=== PATIENT | male | born 1950 | race Caucasian/White ===

== ENCOUNTER 2017-03-06 08:15 | Day surgery (SDC) | payer BC, MEDICARE ==
[~2017-03-06 08:15] MED LIST: Lactated Ringers 1,000 ML IV SCH; Sodium Chloride 0.9% 10 ML Syringe FLUSH PRN
[2017-03-06] MEDS ORDERED: Sodium Phosphate,Monobasic/Sodium Phosphate,Dibasic Enema 133 ML Bottle RECTAL ONE (09:21)
[2017-03-06] MEDS ORDERED: Midazolam 1 MG/ML 2 ML SDV IV ONE (10:00)
[2017-03-06] MEDS ORDERED: Propofol 200 MG/20 ML SDV IV ONE (10:00)
[2017-03-06] MEDS ORDERED: Lidocaine 2% 100 MG/5 ML Syringe IVPUSH ONE (10:00)
--- NOTE | 2017-03-06 10:51 | PCM.OPNOTE ---
- General Post-Op/Procedure Note Date of Surgery/Procedure: 03/06/17 Operative Procedure(s): egd with bx. c scope Findings: Barrios's esophagus normal c scope Pre Op Diagnosis: need for screenign c scope. Hx of Barrios's Post-Op Diagnosis: Same Anesthesia Technique: MAC Primary Surgeon: Marc Chatterjee Anesthesia Provider: Sabi Gautam Pathology: distal esophagus Complications: None Condition: Good Free Text/Narrative:: see dictation
[2017-03-06 11:34] VITALS: BP 148/91
--- NOTE | 2017-03-07 00:21 | OR ---
DATE OF OPERATION: 03/06/2017 SURGEON: Marc Chatterjee MD PROCEDURE PERFORMED: Esophagogastroduodenoscopy with cold forceps biopsy and colonoscopy. 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 POSTOPERATIVE DIAGNOSIS: Barrios esophagus and normal colon. INDICATIONS FOR PROCEDURE: This is a 66-year-old white male, who presents for screening colonoscopy. In addition, he is due for a followup surveillance endoscopy for his Barrios esophagus. DESCRIPTION OF OPERATION: After an excellent IV sedation was administered, the bite block was inserted. The flexible endoscope was passed without difficulty down the patient's esophagus into the stomach. The stomach was insufflated. Scope was passed through the pylorus to the second portion of the duodenum and slowly withdrawn. The following findings were noted. Duodenum was unremarkable. The stomach was unremarkable except for a small hiatal hernia. Distal esophagus, irregular Z-line consistent with Barrios's and biopsies were taken of all the tongues and submitted in a single container. The remainder of the esophageal exam was unremarkable. The stomach was deflated, scope was removed. Our attention was then turned to the colon. Digital rectal exam was performed. No marked abnormality was noted. Flexible colonoscope was inserted and advanced to the cecum without difficulty. The following findings were noted: Ascending colon, unremarkable. Transverse colon, unremarkable. Descending colon, unremarkable. Sigmoid and rectum unremarkable. Colon was deflated. Endoscope was removed. The patient tolerated the procedure well and was taken to recovery in good condition. /[id number] /MODL
== END 2017-03-06 11:37 | disposition home or self-care (01) ==
LOC: FB.SDS 08:15
PROVIDERS: ATTEND Surgery
DX: Z12.11 Encounter for screening for malignant neoplasm of colon (principal); K44.9 Diaphragmatic hernia without obstruction or gangrene; K21.9 Gastro-esophageal reflux disease without esophagitis; E78.5 Hyperlipidemia, unspecified; I25.10 Atherosclerotic heart disease of native coronary artery without angina pectoris; Z95.1 Presence of aortocoronary bypass graft; I50.9 Heart failure, unspecified; Z87.891 Personal history of nicotine dependence; Z88.8 Allergy status to other drugs, medicaments and biological substances; Z79.82 Long term (current) use of aspirin; Z79.899 Other long term (current) drug therapy
CPT/HCPCS: 00810; 43239; 45378; 88305; 88313; J2250; J2704; J7120

== ENCOUNTER 2018-01-15 03:36 | Emergency (ER) | payer BC, MEDICARE ==
[2018-01-15] MEDS ORDERED: hydrALAZINE 20 MG/ML SDV IVPUSH ONE (03:46)
--- NOTE | 2018-01-15 03:51 | EDM.PDOC ---
ED HPI GENERAL MEDICAL PROBLEM - General Stated Complaint: CONFUSSION Time Seen by Provider: 01/15/18 03:36 Source of Information: Reports: Patient, EMS, Family History Limitations: Reports: No Limitations - History of Present Illness INITIAL COMMENTS - FREE TEXT/NARRATIVE: 67 y.o.w.m came to the ed by EMS after he was confused at home, sweaty and diaphoretic. EMS was called and found the BP to >220/120. The patent and his ate salty asparagus last night. On arrival, the pt PB was 200/120, pulse 78 RR 15 temp 36.8 O2 sat 95% on RA pt was confused at times and c/o occipital headache. No C/P or any other acute medical issues. Onset Date: 01/14/18 Onset Time: 23:00 Duration: Hour(s):, Getting Worse, Intermittent Location: Reports: Head (H/A), Neck Quality: Reports: Dull, Pressure, Throbbing Severity: Moderate Improves with: Reports: Medication Context: Reports: Other (eating salty food last night) Associated Symptoms: Reports: Confusion - Related Data Allergies Allergy/AdvReac Type Severity Reaction Status Date / Time celecoxib [From Celebrex] Allergy Shortness Verified 01/15/18 05:46 of Breath Home Meds: Home Meds Aspirin [Atilio Chewable Aspirin] 81 mg PO DAILY 03/05/17 [History] Carbidopa/Levodopa [Carbidopa-Levodopa 25-100 Tab] 1 tab PO ASDIRECTED 03/05/17 [History] Clopidogrel [Plavix] 75 mg PO DAILY 03/05/17 [History] Esomeprazole [NexIUM] 40 mg PO BID 03/05/17 [History] Losartan [Cozaar] 50 mg PO DAILY 03/05/17 [History] Metoprolol Succinate [Toprol Xl] 100 mg PO DAILY 03/05/17 [History] Nitroglycerin [Nitrostat] 0.4 mg SL ASDIRECTED PRN 03/05/17 [History] atorvaSTATin [Lipitor] 80 mg PO DAILY 03/05/17 [History] metroNIDAZOLE [metroNIDAZOLE 0.75% Gel] 1 applic TOP BID 03/05/17 [History] Azithromycin [Zithromax] 250 mg PO DAILY #6 tab 01/15/18 [Rx] Bicalutamide [Casodex] 50 mg PO DAILY 01/15/18 [History] Past Medical History Cardiovascular History: Reports: CAD, Heart Failure, High Cholesterol Respiratory History: Reports: None Gastrointestinal History: Reports: GERD, Other (See Below) Other Gastrointestinal History: SEGURA'S ESOPHAGUS Musculoskeletal History: Reports: Other (See Below) Other Musculoskeletal History: CLAUDICATION OF BILAT LOWER EXTREMITIES - Past Surgical History Cardiovascular Surgical History: Reports: Coronary Artery Bypass Social & Family History - Family History Family Medical History: Noncontributory - Caffeine Use Caffeine Use: Reports: Coffee ED ROS GENERAL - Review of Systems Review Of Systems: See Below Constitutional: Reports: No Symptoms HEENT: Reports: No Symptoms Respiratory: Reports: No Symptoms Cardiovascular: Reports: No Symptoms Endocrine: Reports: No Symptoms GI/Abdominal: Reports: No Symptoms : Reports: No Symptoms Musculoskeletal: Reports: No Symptoms Skin: Reports: No Symptoms Neurological: Reports: Headache Psychiatric: Reports: No Symptoms Hematologic/Lymphatic: Reports: No Symptoms Immunologic: Reports: No Symptoms ED EXAM, GENERAL - Physical Exam Exam: See Below Exam Limited By: No Limitations General Appearance: Alert, WD/WN, Mild Distress Eye Exam: Bilateral Eye: Normal Inspection Ears: Normal External Exam, Normal Canal Ear Exam: Bilateral Ear: Auricle Normal Nose: Normal Inspection Throat/Mouth: Normal Inspection, Normal Lips, Normal Gums, Normal Voice, No Airway Compromise Head: Atraumatic, Normocephalic Neck: Normal Inspection, Supple, Non-Tender, Full Range of Motion Respiratory/Chest: No Respiratory Distress, Lungs Clear, Normal Breath Sounds, No Accessory Muscle Use, Chest Non-Tender Cardiovascular: Normal Peripheral Pulses, Regular Rate, Rhythm, No Edema, No Gallop, No JVD, No Murmur, No Rub Peripheral Pulses: 1+: Brachial (R) GI/Abdominal: Normal Bowel Sounds, Soft, Non-Tender, No Organomegaly, No Distention, No Abnormal Bruit, No Mass (Male) Exam: Deferred Rectal (Males) Exam: Deferred Back Exam: Normal Inspection Extremities: Normal Inspection, Normal Range of Motion, Non-Tender, No Pedal Edema, Normal Capillary Refill Neurological: Alert, Oriented, CN II-XII Intact, Normal Cognition, Normal Gait, No Motor/Sensory Deficits Psychiatric: Normal Affect, Normal Mood Skin Exam: Warm, Dry, Intact, Normal Color, No Rash Lymphatic: No Adenopathy EKG INTERPRETATION EKG Date: 01/15/18 Time: 03:45 Rhythm: NSR Rate (Beats/Min): 55 [place]: Normal P-Wave: Present QRS: Normal ST-T: Normal QT: Normal Comparison: NA - No Prior EKG Course - Vital Signs Text/Narrative:: 67 y.o.w.m came to the ed by EMS after he was confused at home, sweaty and diaphoretic. EMS was called and found the BP to >220/120. The patent and his ate salty asparagus last night. On arrival, the pt PB was 200/120, pulse 78 RR 15 temp 36.8 O2 sat 95% on RA pt was confused at times and c/o occipital headache. No C/P or any other acute medical issues. PE: 67 y.o.w.m with HTN, confusion and headache Imaging: CT Head:Sinusitis, no acute changes. C Spine CT: NAD as per RAD Labs: CBC, BMP and UA were WNL, Glc was 126, however. Impression: Hypertensive encephalopathy, sinusitis Tx: Hydralazine, Abx as a prescription Reexam: BP 147/78 on D/C. Pt was remembering issues, ambulating fine on D/C was in his usual state of health Plan: D/C with instructions Last Recorded V/S: Last Vital Signs Temp 36.3 C 01/15/18 04:10 Pulse 68 01/15/18 05:45 Resp 16 01/15/18 05:45 BP 147/78 H 01/15/18 05:45 Pulse Ox 97 01/15/18 05:45 - Orders/Labs/Meds Orders: Active Orders 24 hr Category Date Time Status EKG Documentation Completion [RC] ASDIRECTED Care 01/15/18 03:49 Active Cervical Spine wo Cont [CT] Stat Exams 01/15/18 04:50 Taken Head wo Cont [CT] Stat Exams 01/15/18 04:49 Taken UA W/MICROSCOPIC [URIN] Stat Lab 01/15/18 04:55 Ordered EKG 12 Lead [EK] Routine Ther 01/15/18 03:48 Ordered Labs: Laboratory Tests 01/15/18 01/15/18 01/15/18 Range/Units 03:53 03:53 03:53 WBC 7.1 (4.5-12.0) X10-3/uL RBC 5.17 (4.30-5.75) x10(6)uL Hgb 15.7 H (11.5-15.5) g/dL Hct 46.6 (30.0-51.3) % MCV 90.2 (80-96) fL MCH 30.4 (27.7-33.6) pg MCHC 33.6 (32.2-35.4) g/dL RDW 12.5 (11.5-15.5) % Plt Count 261 (125-369) X10(3)uL MPV 8.4 (7.4-10.4) fL Neut % (Auto) 59.7 (46-82) % Lymph % (Auto) 23.8 (13-37) % [place] % (Auto) 8.2 (4-12) % Eos % (Auto) 7 H (1.0-5.0) % Baso % (Auto) 1 (0-2) % Neut # (Auto) 4.2 (1.6-8.3) # Lymph # (Auto) 1.7 (0.6-5.0) # [place] # (Auto) 0.6 (0.0-1.3) # Eos # (Auto) 0.5 (0.0-0.8) # Baso # (Auto) 0.1 (0.0-0.2) # PT 10.3 (8.7-11.1) INR 1.06 (0.89-1.13) Sodium 140 (135-145) mmol/L Potassium 4.0 (3.5-5.3) mmol/L Chloride 104 (100-110) mmol/L Carbon Dioxide 24 (21-32) mmol/L BUN 14 (7-18) mg/dL Creatinine 1.0 (0.70-1.30) mg/dL Est Cr Clr Drug Dosing TNP Estimated GFR (MDRD) > 60 (>60) BUN/Creatinine Ratio 14.0 (9-20) Glucose 125 H (80-116) mg/dL Calcium 8.8 (8.6-10.2) mg/dL Urine Color (YELLOW) Urine Appearance (CLEAR) Urine pH (5.0-6.5) Ur Specific [place] (1.010-1.025) Urine Protein (NEGATIVE) mg/dL Urine Glucose (UA) (NEGATIVE) mg/dL Urine Ketones (NEGATIVE) mg/dL Urine Occult Blood (NEGATIVE) Urine Nitrite (NEGATIVE) Urine Bilirubin (NEGATIVE) Urine Urobilinogen (NEGATIVE) mg/dL Ur Leukocyte Esterase (NEGATIVE) Urine RBC (0) Urine WBC (0) Ur Squamous Epith Cells (NS,R,O) Urine Bacteria (NS) 01/15/18 Range/Units 04:55 WBC (4.5-12.0) X10-3/uL RBC (4.30-5.75) x10(6)uL Hgb (11.5-15.5) g/dL Hct (30.0-51.3) % MCV (80-96) fL MCH (27.7-33.6) pg MCHC (32.2-35.4) g/dL RDW (11.5-15.5) % Plt Count (125-369) X10(3)uL MPV (7.4-10.4) fL Neut % (Auto) (46-82) % Lymph % (Auto) (13-37) % [place] % (Auto) (4-12) % Eos % (Auto) (1.0-5.0) % Baso % (Auto) (0-2) % Neut # (Auto) (1.6-8.3) # Lymph # (Auto) (0.6-5.0) # [place] # (Auto) (0.0-1.3) # Eos # (Auto) (0.0-0.8) # Baso # (Auto) (0.0-0.2) # PT (8.7-11.1) INR (0.89-1.13) Sodium (135-145) mmol/L Potassium (3.5-5.3) mmol/L Chloride (100-110) mmol/L Carbon Dioxide (21-32) mmol/L BUN (7-18) mg/dL Creatinine (0.70-1.30) mg/dL Est Cr Clr Drug Dosing Estimated GFR (MDRD) (>60) BUN/Creatinine Ratio (9-20) Glucose (80-116) mg/dL Calcium (8.6-10.2) mg/dL Urine Color Yellow (YELLOW) Urine Appearance Clear (CLEAR) Urine pH 6.0 (5.0-6.5) Ur Specific [place] 1.015 (1.010-1.025) Urine Protein Negative (NEGATIVE) mg/dL Urine Glucose (UA) Normal (NEGATIVE) mg/dL Urine Ketones Negative (NEGATIVE) mg/dL Urine Occult Blood Negative (NEGATIVE) Urine Nitrite Negative (NEGATIVE) Urine Bilirubin Negative (NEGATIVE) Urine Urobilinogen Normal (NEGATIVE) mg/dL Ur Leukocyte Esterase Negative (NEGATIVE) Urine RBC 0-5 (0) Urine WBC 0-5 (0) Ur Squamous Epith Cells Occasional (NS,R,O) Urine Bacteria Few H (NS) Meds: Medications Discontinued Medications Generic Name Dose Route Start Last Admin Trade Name Freq PRN Reason Stop Dose Admin Hydralazine HCl 10 mg 01/15/18 03:46 01/15/18 03:59 Apresoline IVPUSH 01/15/18 03:47 10 mg ONETIME ONE Administration Sodium Chloride 10 ml 01/15/18 04:10 01/15/18 04:10 Saline Flush FLUSH 10 ml ASDIRECTED PRN Administration Keep Vein Open Departure - Departure Time of Disposition: 05:54 Disposition: Home, Self-Care 01 Condition: Good Clinical Impression: Sinusitis chronic, ethmoidal, Hypertensive encephalopathy Prescriptions: Azithromycin [Zithromax] 250 mg PO DAILY #6 tab Instructions: Sinusitis, Adult, [id number], Hypertension, [id number] Referrals: Juan Luis Chiu MD [Primary Care Provider] - Forms: ED Department Discharge Additional Instructions: Please take the Abx as recommended, please cont your current meds, please get your BP checked again in next 2 days, avoid salty food. Please come to the ED if your symptoms get worse acutely. - My Orders Last 24 Hours: My Active Orders 01/15/18 03:48 EKG 12 Lead [EK] Routine 01/15/18 03:49 EKG Documentation Completion [RC] ASDIRECTED 01/15/18 04:49 Head wo Cont [CT] Stat 01/15/18 04:50 Cervical Spine wo Cont [CT] Stat 01/15/18 04:55 UA W/MICROSCOPIC [URIN] Stat - Assessment/Plan Last 24 Hours: My Active Orders 01/15/18 03:48 EKG 12 Lead [EK] Routine 01/15/18 03:49 EKG Documentation Completion [RC] ASDIRECTED 01/15/18 04:49 Head wo Cont [CT] Stat 01/15/18 04:50 Cervical Spine wo Cont [CT] Stat 01/15/18 04:55 UA W/MICROSCOPIC [URIN] Stat
[2018-01-15] MEDS ORDERED: Sodium Chloride 0.9% 10 ML Syringe FLUSH PRN (04:10)
[2018-01-15 07:26] VITALS: BP 147/78
== END 2018-01-15 06:20 | disposition home or self-care (01) ==
LOC: FB.ED 03:36
DX: J32.2 Chronic ethmoidal sinusitis (principal); I67.4 Hypertensive encephalopathy; I50.9 Heart failure, unspecified; E78.00 Pure hypercholesterolemia, unspecified; K21.9 Gastro-esophageal reflux disease without esophagitis; Z79.82 Long term (current) use of aspirin; Z79.899 Other long term (current) drug therapy; Z88.1 Allergy status to other antibiotic agents
CPT/HCPCS: 36415; 70450; 72125; 80048; 81001; 85025; 85610; 93005; 96374; 99284; J0360; J7050

== ENCOUNTER 2021-07-21 19:12 | Emergency (ER) | payer BC, MEDICARE ==
[2021-07-21 19:43] VITALS: BP 198/91; PULSE 54
[2021-07-21] MEDS ORDERED: hydrALAZINE 20 MG/ML SDV IVPUSH STA (19:59)
[2021-07-21] MEDS ORDERED: Sodium Chloride 0.9% 10 ML Syringe FLUSH PRN (19:59)
--- NOTE | 2021-07-21 20:36 | EDM.PDOC ---
ED HPI GENERAL MEDICAL PROBLEM - General Chief Complaint: Cardiovascular Problem Stated Complaint: HIGH BP Time Seen by Provider: 07/21/21 19:20 Source of Information: Reports: Patient History Limitations: Reports: No Limitations - History of Present Illness INITIAL COMMENTS - FREE TEXT/NARRATIVE: Patient presented to the ED because of an elevated BP. There is no headache, chest pain, dyspnea. He is worried because he had 2 AMI and 3 CVA's. - Related Data Allergies Allergy/AdvReac Type Severity Reaction Status Date / Time celecoxib [From Celebrex] Allergy Shortness Verified 07/21/21 19:36 of Breath Home Meds: Home Meds Aspirin [Atilio Chewable Aspirin] 81 mg PO DAILY 03/05/17 [History] Carbidopa/Levodopa [Carbidopa-Levodopa 25-100 Tab] 1 tab PO TID PRN 03/05/17 [History] Esomeprazole [NexIUM] 40 mg PO DAILY 03/05/17 [History] Losartan [Cozaar] 25 mg PO DAILY 03/05/17 [History] Nitroglycerin [Nitrostat] 0.4 mg SL ASDIRECTED PRN 03/05/17 [History] Oxybutynin [Oxybutynin ER] 5 mg PO DAILY 07/22/21 [History] Rosuvastatin [Crestor] 20 mg PO DAILY 07/22/21 [History] carvediloL [Coreg] 6.25 mg PO BID 07/22/21 [History] Past Medical History HEENT History: Reports: Other (See Below) 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 Hx prostate CA Musculoskeletal History: Reports: Arthritis, Other (See Below) Other Musculoskeletal History: CLAUDICATION OF BILAT LOWER EXTREMITIES Neurological History: Reports: CVA, Other (See Below) Other Neuro History: Experiences Tremors, patients states non-Parkinson's., CVA x 3 Hematologic History: Reports: Anemia, Anticoagulation Therapy Oncologic (Cancer) History: Reports: Lung, Prostate - Infectious Disease History Infectious Disease History: Reports: Chicken Pox, Measles, Mumps - Past Surgical History Cardiovascular Surgical History: Reports: Coronary Artery Bypass, Coronary Artery Stent Other Cardiovascular Surgeries/Procedures: Bypass 17 years ago. Respiratory Surgical History: Reports: Other (See Below) Other Respiratory Surgeries/Procedures: L upper lobe removed for lung CA GI Surgical History: Reports: Colonoscopy, EGD Musculoskeletal Surgical History: Reports: Arthroscopic Knee Other Musculoskeletal Surgeries/Procedures:: bilat knee scope Oncologic Surgical History: Reports: Lobectomy Other Oncologic Surgeries/Procedures: L upper lobe lobectomy, had radiation for prostate CA Social & Family History - Family History Family Medical History: No Pertinent Family History - Tobacco Use Tobacco Use Status *Q: Former Tobacco User Years of Tobacco use: 30 Used Tobacco, but Quit: Yes Month/Year Tobacco Last Used: 1999 - Caffeine Use Caffeine Use: Reports: None - Recreational Drug Use Recreational Drug Use: No ED ROS GENERAL - Review of Systems Review Of Systems: See Below Constitutional: Reports: No Symptoms HEENT: Reports: No Symptoms Respiratory: Reports: No Symptoms Cardiovascular: Reports: No Symptoms Endocrine: Reports: No Symptoms GI/Abdominal: Reports: No Symptoms : Reports: No Symptoms Musculoskeletal: Reports: No Symptoms Skin: Reports: No Symptoms Neurological: Reports: No Symptoms Psychiatric: Reports: No Symptoms ED EXAM, GENERAL - Physical Exam Exam: See Below Exam Limited By: No Limitations General Appearance: Alert, No Apparent Distress Ears: Normal External Exam, Normal Canal, Hearing Grossly Normal, Normal TMs Nose: Normal Inspection, Normal Mucosa, No Blood Throat/Mouth: Normal Inspection, Normal Lips, Normal Teeth, Normal Gums, Normal Oropharynx, Normal Voice Head: Atraumatic, Normocephalic Neck: Normal Inspection, Supple, Non-Tender, Full Range of Motion Respiratory/Chest: No Respiratory Distress, Lungs Clear, Normal Breath Sounds, No Accessory Muscle Use, Chest Non-Tender Cardiovascular: Normal Peripheral Pulses, Regular Rate, Rhythm, No Edema, No Gallop, No JVD, No Murmur, No Rub GI/Abdominal: Normal Bowel Sounds, Soft, Non-Tender, No Distention Back Exam: Normal Inspection, Full Range of Motion Extremities: Normal Inspection, Normal Range of Motion, Non-Tender Neurological: Alert, Oriented, CN II-XII Intact, Normal Cognition, Normal Gait, Normal Reflexes, No Motor/Sensory Deficits Psychiatric: Normal Affect, Normal Mood #1 Interpretation EKG Date: 07/21/21 Time: 19:28 Rhythm: NSR Rate (Beats/Min): 55 [place]: Normal P-Wave: Present QRS: Normal ST-T: Normal QT: Normal Comparison: No Change EKG Interpretation Comments: NSR Borderline T abn inferior leads Course - Vital Signs Text/Narrative:: LAB/EKG result was reviewed and discussed with patient Hydralazine 20 mg IV x1 Last Recorded V/S: Last Vital Signs Temp 36.4 C 07/21/21 19:20 Pulse 54 L 07/21/21 19:20 Resp 20 07/21/21 19:20 BP 198/91 H 07/21/21 19:20 Pulse Ox 97 07/21/21 19:20 - Orders/Labs/Meds Orders: Active Orders 24 hr Category Date Time Status Saline Lock Insert [OM.PC] Routine Oth 07/21/21 19:59 Ordered EKG 12 Lead [EK] Routine Ther 07/21/21 19:59 Ordered Labs: Laboratory Tests 07/21/21 07/21/21 07/21/21 Range/Units 19:40 19:40 19:40 WBC 6.6 (3.2-10.1) x10-3/uL RBC 4.63 (3.90-5.90) x10(6)uL Hgb 13.5 (12.9-17.7) g/dL Hct 41.9 (38.3-50.1) % MCV 90.6 (80.8-98.7) fL MCH 29.3 (27.0-33.3) pg MCHC 32.3 (28.7-35.3) g/dL RDW 13.7 (12.4-15.0) % Plt Count 229 (117-477) x10(3)uL MPV 7.9 (6.7-11.0) fL Neut % (Auto) 61.9 (40.3-71.8) % Lymph % (Auto) 23.3 (15.8-45.3) % [place] % (Auto) 9.4 (5.5-15.2) % Eos % (Auto) 4.6 (0.1-6.8) % Baso % (Auto) 0.8 (0.3-3.8) % Neut # (Auto) 4.1 (1.7-6.9) x10-3/uL Lymph # (Auto) 1.5 (0.5-4.5) x10-3/uL [place] # (Auto) 0.6 (0.0-1.2) x10-3/uL Eos # (Auto) 0.3 (0.0-0.6) x10-3/uL Baso # (Auto) 0.1 (0.0-0.3) x10-3/uL Sodium 139 (135-145) mmol/L Potassium 4.0 (3.5-5.3) mmol/L Chloride 103 (100-110) mmol/L Carbon Dioxide 27 (21-32) mmol/L BUN 13 (7-18) mg/dL Creatinine 1.1 (0.70-1.30) mg/dL Est Cr Clr Drug Dosing 61.59 mL/min Estimated GFR (MDRD) > 60 (>60) BUN/Creatinine Ratio 11.8 (9-20) Glucose 94 (80-116) mg/dL Calcium 8.7 (8.6-10.2) mg/dL Total Bilirubin 0.7 (0.1-1.3) mg/dL AST 22 (5-25) IU/L ALT 28 (12-36) U/L Alkaline Phosphatase 78 (56-112) IU/L Troponin I 11.3 (4.0-60.3) pg/mL Total Protein 6.9 (6.0-8.0) g/dL Albumin 3.6 (3.2-4.6) g/dL Globulin 3.3 g/dL Albumin/Globulin Ratio 1.1 Meds: Medications Discontinued Medications Generic Name Dose Route Start Last Admin Trade Name Freq PRN Reason Stop Dose Admin Clonidine HCl 0.2 mg 07/21/21 20:23 07/22/21 07:28 Clonidine 0.1 Mg Tab PO 07/21/21 20:24 Not Given NOW STA Hydralazine HCl 20 mg 07/21/21 19:59 07/21/21 20:13 Hydralazine 20 Mg/Ml Sdv IVPUSH 07/21/21 20:00 20 mg NOW STA Administration Hydralazine HCl 20 mg 12/03/21 20:23 07/22/21 07:28 Hydralazine 20 Mg/Ml Sdv IVPUSH 07/21/21 20:24 Not Given NOW STA Sodium Chloride 10 ml 07/21/21 19:59 07/21/21 20:10 Sodium Chloride 0.9% 10 Ml Syringe FLUSH 10 ml ASDIRECTED PRN Administration Keep Vein Open Departure - Departure Time of Disposition: 20:45 Disposition: Home, Self-Care 01 Condition: Good Clinical Impression: Hypertensive crisis, Palpitations Instructions: Hypertension, Adult, [id number], Palpitations, [id number] Referrals: Thomas Lawrence MD [Primary Care Provider] - Forms: ED Department Discharge Additional Instructions: Please read discharge instructions on palpitations and hypertensive crisis Low salt, low fat diet and exercise Weight loss If your BP is = or more than 185/115 take an extra 50 mg dose of losartan and recheck your BP in 2 hours Follow this coming week Sepsis Event Note (ED) - Evaluation Sepsis Screening Result: No Definite Risk - My Orders Last 24 Hours: My Active Orders 07/21/21 19:59 Saline Lock Insert [OM.PC] Routine EKG 12 Lead [EK] Routine - Assessment/Plan Last 24 Hours: My Active Orders 07/21/21 19:59 Saline Lock Insert [OM.PC] Routine EKG 12 Lead [EK] Routine
[2021-07-22] MEDS: hydrALAZINE 20 MG/ML SDV IVPUSH STA ×2 (02:08→07:28)
[2021-07-22] MEDS: cloNIDine 0.1 MG Tab PO STA ×2 (02:08→07:28)
== END 2021-07-21 20:55 | disposition home or self-care (01) ==
LOC: FB.ED 19:12
DX: I16.9 Hypertensive crisis, unspecified (principal); R00.2 Palpitations; I25.10 Atherosclerotic heart disease of native coronary artery without angina pectoris; I11.0 Hypertensive heart disease with heart failure; I50.9 Heart failure, unspecified; E78.00 Pure hypercholesterolemia, unspecified; K21.9 Gastro-esophageal reflux disease without esophagitis; Z88.8 Allergy status to other drugs, medicaments and biological substances; Z79.82 Long term (current) use of aspirin; Z79.899 Other long term (current) drug therapy; Z86.73 Personal history of transient ischemic attack (TIA), and cerebral infarction without residual deficits; Z95.1 Presence of aortocoronary bypass graft; Z87.891 Personal history of nicotine dependence
CPT/HCPCS: 36415; 80053; 84484; 85025; 93005; 96374; 99283; J0360

== ENCOUNTER 2021-07-26 23:54 | Emergency (ER) | payer MEDICARE ==
[2021-07-27] MEDS ORDERED: Enalaprilat 1.25 MG/ML SDV IVPUSH ONE (00:17)
[2021-07-27] MEDS ORDERED: Labetalol 20 MG/4 ML Syringe IVPUSH ONE (00:41)
--- NOTE | 2021-07-27 00:49 | EDM.PDOC ---
ED HPI GENERAL MEDICAL PROBLEM - General Stated Complaint: HBP Time Seen by Provider: 07/27/21 00:44 Source of Information: Reports: Patient History Limitations: Reports: No Limitations - History of Present Illness INITIAL COMMENTS - FREE TEXT/NARRATIVE: Kevin is a 70-year-old male who has hypertension. He presents because of elevated blood pressure at home. He is otherwise asymptomatic with exception of mild visual disturbance. He does not endorse any headache, chest pain or shortness of breath. He has a history of hypertension and crisis, was seen on Saturday by Dr. Sauceda, given hydralazine. Also saw cardiology today and was placed on spironolactone. He has a previous history of coronary disease, and stroke - Related Data Allergies Allergy/AdvReac Type Severity Reaction Status Date / Time celecoxib [From Celebrex] Allergy Shortness Verified 07/27/21 18:10 of Breath Home Meds: Home Meds Esomeprazole [NexIUM] 40 mg PO DAILY 03/05/17 [History] Nitroglycerin [Nitrostat] 0.4 mg SL ASDIRECTED PRN 03/05/17 [History] Oxybutynin [Oxybutynin ER] 5 mg PO BEDTIME 07/22/21 [History] Rosuvastatin [Crestor] 20 mg PO BEDTIME 07/22/21 [History] carvediloL [Coreg] 6.25 mg PO BID 07/22/21 [History] Apixaban [Eliquis] 5 mg BID 07/27/21 [History] metroNIDAZOLE [metroNIDAZOLE 0.75% Gel] 1 applic BID PRN 07/27/21 [History] Aspirin [Adult Low Dose Aspirin EC] 81 mg PO DAILY 07/28/21 [History] Benzocaine [Orajel] 0 gm MUCMEM QID PRN tube 07/29/21 [Rx] Carbidopa/Levodopa [Carbidopa-Levodopa 25-100] 1 tab PO DAILY tablet 07/29/21 [Rx] amLODIPine Besylate [Amlodipine Besylate] 10 mg PO DAILY@1200 #30 tablet 07/29/21 [Rx] hydrALAZINE [Apresoline] 20 mg PO Q6H PRN tablet 07/29/21 [Rx] Losartan [Cozaar] 50 mg PO BID #60 tablet 07/30/21 [Rx] hydrOXYzine HCL [Atarax] 25 mg PO Q8H PRN #12 tab 07/30/21 [Rx] Past Medical History HEENT History: Reports: Other (See Below) 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 Respiratory History: Reports: None Gastrointestinal History: Reports: GERD, Other (See Below) Other Gastrointestinal History: SEGURA'S ESOPHAGUS Genitourinary History: Reports: Other (See Below) Other Genitourinary History: Started taking Hormone Pills in preparation for Prostate Surgery planned for March 2018. Musculoskeletal History: Reports: Other (See Below) Other Musculoskeletal History: CLAUDICATION OF BILAT LOWER EXTREMITIES Neurological History: Reports: Other (See Below) Other Neuro History: Experiences Tremors, patients states non-Parkinson's. Hematologic History: Reports: Anemia, Anticoagulation Therapy Oncologic (Cancer) History: Reports: Lung, Prostate - Infectious Disease History Infectious Disease History: Reports: Chicken Pox, Measles, Mumps - Past Surgical History Cardiovascular Surgical History: Reports: Coronary Artery Bypass Social & Family History - Family History Family Medical History: No Pertinent Family History - Caffeine Use Caffeine Use: Reports: Coffee ED ROS GENERAL - Review of Systems Review Of Systems: Comprehensive ROS is negative, except as noted in HPI. ED EXAM, GENERAL - Physical Exam Exam: See Below Exam Limited By: No Limitations General Appearance: Alert, WD/WN, No Apparent Distress Ears: Normal External Exam, Normal Canal, Hearing Grossly Normal, Normal TMs Ear Exam: Bilateral Ear: Auricle Normal, Canal Normal, TM normal Nose: Normal Inspection, Normal Mucosa, No Blood Throat/Mouth: Normal Inspection, Normal Lips, Normal Teeth, Normal Gums, Normal Oropharynx, Normal Voice, No Airway Compromise Head: Atraumatic, Normocephalic Neck: Normal Inspection, Supple, Non-Tender, Full Range of Motion Respiratory/Chest: No Respiratory Distress, Lungs Clear, Normal Breath Sounds, No Accessory Muscle Use, Chest Non-Tender Cardiovascular: Normal Peripheral Pulses, Regular Rate, Rhythm, No Edema, No Gallop, No JVD, No Murmur, No Rub GI/Abdominal: Normal Bowel Sounds, Soft, Non-Tender, No Organomegaly, No Distention, No Abnormal Bruit, No Mass (Male) Exam: Deferred Rectal (Males) Exam: Deferred Back Exam: Normal Inspection, Full Range of Motion, NT Extremities: Normal Inspection, Normal Range of Motion, Non-Tender, Normal Capillary Refill, No Pedal Edema Neurological: Alert, Oriented, CN II-XII Intact, Normal Cognition, Normal Gait, Normal Reflexes, No Motor/Sensory Deficits Psychiatric: Normal Affect, Normal Mood Skin Exam: Warm, Dry, Intact, Normal Color, No Rash Lymphatic: No Adenopathy #1 Interpretation EKG Date: 07/27/21 Time: 00:03 Rhythm: NSR [place]: Normal P-Wave: Present Comparison: No Change #2 Interpretation EKG Date: 07/27/21 Time: 00:31 Rhythm: NSR Rate (Beats/Min): 64 [place]: Normal P-Wave: Present QT: Normal Comparison: Change From Previous EKG Course - Vital Signs Last Recorded V/S: Last Vital Signs Temp 98.2 F 07/27/21 01:21 Pulse 61 07/27/21 01:21 Resp 14 07/27/21 01:21 BP 209/106 H 07/27/21 01:21 Pulse Ox 96 07/27/21 01:21 - Orders/Labs/Meds Labs: Laboratory Tests 07/27/21 07/27/21 07/27/21 Range/Units 00:25 00:25 00:25 WBC 6.8 (3.2-10.1) x10-3/uL RBC 4.62 (3.90-5.90) x10(6)uL Hgb 13.8 (12.9-17.7) g/dL Hct 41.7 (38.3-50.1) % MCV 90.4 (80.8-98.7) fL MCH 29.8 (27.0-33.3) pg MCHC 33.0 (28.7-35.3) g/dL RDW 13.8 (12.4-15.0) % Plt Count 234 (117-477) x10(3)uL MPV 7.8 (6.7-11.0) fL Neut % (Auto) 59.8 (40.3-71.8) % Lymph % (Auto) 24.1 (15.8-45.3) % [place] % (Auto) 9.2 (5.5-15.2) % Eos % (Auto) 6.1 (0.1-6.8) % Baso % (Auto) 0.8 (0.3-3.8) % Neut # (Auto) 4.1 (1.7-6.9) x10-3/uL Lymph # (Auto) 1.6 (0.5-4.5) x10-3/uL [place] # (Auto) 0.6 (0.0-1.2) x10-3/uL Eos # (Auto) 0.4 (0.0-0.6) x10-3/uL Baso # (Auto) 0.1 (0.0-0.3) x10-3/uL Sodium 138 (135-145) mmol/L Potassium 3.7 (3.5-5.3) mmol/L Chloride 103 (100-110) mmol/L Carbon Dioxide 26 (21-32) mmol/L BUN 15 (7-18) mg/dL Creatinine 1.1 (0.70-1.30) mg/dL Est Cr Clr Drug Dosing TNP Estimated GFR (MDRD) > 60 (>60) BUN/Creatinine Ratio 13.6 (9-20) Glucose 109 (80-116) mg/dL Calcium 8.4 L (8.6-10.2) mg/dL Troponin I 10.9 (4.0-60.3) pg/mL Meds: Medications Discontinued Medications Generic Name Dose Route Start Last Admin Trade Name Freq PRN Reason Stop Dose Admin Enalaprilat 1.25 mg 07/27/21 00:17 07/27/21 00:21 Enalaprilat 1.25 Mg/Ml Sdv IVPUSH 07/27/21 00:18 1.25 mg ONETIME ONE Administration Labetalol HCl 20 mg 07/27/21 00:41 07/27/21 00:46 Labetalol 20 Mg/4 Ml Syringe IVPUSH 07/27/21 00:42 20 mg ONETIME ONE Administration Protocol Departure - Departure Time of Disposition: 21:12 Disposition: Home, Self-Care 01 Condition: Good Clinical Impression: Acute coronary syndrome, Hypertensive urgency Instructions: Hypertension, Adult, [id number] Referrals: Thomas Lawrence MD [Primary Care Provider] - Forms: ED Department Discharge Additional Instructions: Read discharge instructions on Hypertension. Continue taking your medications as directed. Follow-up tomorrow. - Problem List & Annotations (1) Hypertensive urgency SNOMED Code(s): 013258516 Code(s): I16.0 - HYPERTENSIVE URGENCY Status: Acute - Problem List Review Problem List Initiated/Reviewed/Updated: Yes - Assessment/Plan Plan: I have him Vasotec 1.25 mg initially. then labetalol 20 mg IV.
[2021-07-27 01:29] VITALS: BP 209/106; PULSE 61
== END 2021-07-27 01:50 | disposition home or self-care (01) ==
LOC: FB.ED 23:54
DX: I16.0 Hypertensive urgency (principal); I11.0 Hypertensive heart disease with heart failure; I50.9 Heart failure, unspecified; I24.9 Acute ischemic heart disease, unspecified; I25.10 Atherosclerotic heart disease of native coronary artery without angina pectoris; E78.00 Pure hypercholesterolemia, unspecified; K21.9 Gastro-esophageal reflux disease without esophagitis; Z88.1 Allergy status to other antibiotic agents; Z79.82 Long term (current) use of aspirin; Z79.01 Long term (current) use of anticoagulants; Z79.899 Other long term (current) drug therapy
CPT/HCPCS: 36415; 80048; 84484; 85025; 93005; 96374; 96375; 99283; J3490

== ENCOUNTER 2021-07-27 17:49 | Observation (INO) | payer MEDICARE ==
[2021-07-27] MEDS ORDERED: Sodium Chloride 0.9% 10 ML Syringe FLUSH PRN (18:07)
[2021-07-27] MEDS ORDERED: hydrALAZINE 20 MG/ML SDV IVPUSH STA (18:09)
[2021-07-27] MEDS ORDERED: Aspirin 81 MG Tab.Chew PO STA ×2 (18:09→18:39)
[2021-07-27] MEDS ORDERED: Carbidopa/Levodopa 25-100 MG Tab *PTOM PO PRN (19:51)
[2021-07-27] MEDS ORDERED: Nitroglycerin 0.4 MG Tab.SL *PTOM SL PRN (19:51)
[2021-07-27] MEDS ORDERED: hydrALAZINE 20 MG/ML SDV IVPUSH PRN (19:55)
[2021-07-27] MEDS: Carvedilol 6.25 MG Tab *PTOM PO SCH (21:20)
[2021-07-27] MEDS: Apixaban 5 MG Tab *PTOM PO SCH (21:20)
[2021-07-27] MEDS: Losartan 50 MG Tab *PTOM PO SCH (21:20)
--- NOTE | 2021-07-28 03:12 | EDM.PDOC ---
ED HPI GENERAL MEDICAL PROBLEM - General Chief Complaint: Chest Pain Stated Complaint: CHEST PAIN Time Seen by Provider: 07/27/21 17:55 Source of Information: Reports: Patient History Limitations: Reports: No Limitations - History of Present Illness INITIAL COMMENTS - FREE TEXT/NARRATIVE: Patient is a 70 YO WM who presented to the ED because of chest tightness at about 1630 today. He went to check on his BP and his systolic BP was more than 200. He also c/o dyspnea,nausea but no vomiting, tightness on his jaw arms. He also noticed his arms and legs getting weak. While in the ED all his symptoms resolved when his BP improved. This is his 3rd ER visit in a week, one at [facility] in [place] and on 07/27/21 he was seen by the General Technician at [facility], Dr. Paredes who added spironolactone to his antihypertensive medications. bilateral arm Pain Score (Numeric/FACES): 3 - Related Data Allergies Allergy/AdvReac Type Severity Reaction Status Date / Time celecoxib [From Celebrex] Allergy Shortness Verified 07/27/21 18:10 of Breath Home Meds: Home Meds Aspirin [Atilio Chewable Aspirin] 81 mg PO DAILY 03/05/17 [History] Carbidopa/Levodopa [Carbidopa-Levodopa 25-100 Tab] 1 tab PO TID PRN 03/05/17 [History] Esomeprazole [NexIUM] 40 mg PO DAILY 03/05/17 [History] Losartan [Cozaar] 50 mg PO BID 03/05/17 [History] Nitroglycerin [Nitrostat] 0.4 mg SL ASDIRECTED PRN 03/05/17 [History] Oxybutynin [Oxybutynin ER] 5 mg PO DAILY 07/22/21 [History] Rosuvastatin [Crestor] 20 mg PO DAILY 07/22/21 [History] carvediloL [Coreg] 6.25 mg PO BID 07/22/21 [History] Apixaban [Eliquis] 5 mg BID 07/27/21 [History] Spironolactone [Aldactone] 25 mg PO DAILY 07/27/21 [History] hydrALAZINE [Apresoline] 20 mg PO Q6HR PRN 07/27/21 [History] metroNIDAZOLE [metroNIDAZOLE 0.75% Gel] 1 applic BID PRN 07/27/21 [History] Past Medical History HEENT History: Reports: Other (See Below) Other HEENT History: 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 Respiratory History: Reports: None Gastrointestinal History: Reports: GERD, Other (See Below) Other Gastrointestinal History: SEGURA'S ESOPHAGUS Genitourinary History: Reports: Prostate Disorder, Other (See Below) Other Genitourinary History: hx prostate CA Musculoskeletal History: Reports: Other (See Below) Other Musculoskeletal History: CLAUDICATION OF BILAT LOWER EXTREMITIES Neurological History: Reports: Other (See Below) Other Neuro History: Experiences Tremors, patients states non-Parkinson's. Psychiatric History: Reports: Anxiety Hematologic History: Reports: Anemia, Anticoagulation Therapy Oncologic (Cancer) History: Reports: Lung, Prostate - Infectious Disease History Infectious Disease History: Reports: Chicken Pox, Measles, Mumps - Past Surgical History Cardiovascular Surgical History: Reports: Coronary Artery Bypass Other Cardiovascular Surgeries/Procedures: Bypass 17 years ago. Has had 10 bypass in 2000 Respiratory Surgical History: Reports: Other (See Below) Other Respiratory Surgeries/Procedures: L upper lobe removed for lung CA GI Surgical History: Reports: Colonoscopy, EGD Male Surgical History: Reports: Prostate Biopsy Musculoskeletal Surgical History: Reports: Arthroscopic Knee Other Musculoskeletal Surgeries/Procedures:: bilat knee scope Oncologic Surgical History: Reports: Lobectomy Other Oncologic Surgeries/Procedures: L upper lobe lobectomy, had radiation for prostate CA Social & Family History - Family History Family Medical History: No Pertinent Family History - Tobacco Use Tobacco Use Status *Q: Light Tobacco User Years of Tobacco use: 15 Packs/Tins Daily: 1 Used Tobacco, but Quit: No Second Hand Smoke Exposure: No - Caffeine Use Caffeine Use: Reports: None - Alcohol Use Days Per Week of Alcohol Use: 3 Number of Drinks Per Day: 2 Total Drinks Per Week: 6 - Recreational Drug Use Recreational Drug Use: No ED ROS GENERAL - Review of Systems Review Of Systems: See Below Constitutional: Reports: Weakness HEENT: Reports: No Symptoms Respiratory: Reports: Shortness of Breath Cardiovascular: Reports: Chest Pain Endocrine: Reports: No Symptoms GI/Abdominal: Reports: Nausea : Reports: No Symptoms Musculoskeletal: Reports: No Symptoms Skin: Reports: No Symptoms Neurological: Reports: No Symptoms Psychiatric: Reports: No Symptoms Hematologic/Lymphatic: Reports: No Symptoms Immunologic: Reports: No Symptoms ED EXAM, GENERAL - Physical Exam Exam: See Below Exam Limited By: No Limitations General Appearance: Alert, No Apparent Distress Eye Exam: Bilateral Eye: PERRL Ears: Normal External Exam, Normal Canal, Hearing Grossly Normal, Normal TMs Nose: Normal Inspection, Normal Mucosa, No Blood Throat/Mouth: Normal Inspection, Normal Lips, Normal Teeth, Normal Gums, Normal Oropharynx Head: Atraumatic, Normocephalic Neck: Normal Inspection, Supple, Non-Tender, Full Range of Motion Respiratory/Chest: No Respiratory Distress, Lungs Clear, Normal Breath Sounds, No Accessory Muscle Use, Chest Non-Tender Cardiovascular: Normal Peripheral Pulses, Regular Rate, Rhythm, No Edema, No Gallop, No JVD, No Murmur, No Rub GI/Abdominal: Normal Bowel Sounds, Soft, Non-Tender, No Organomegaly, No Distention, No Abnormal Bruit Back Exam: Normal Inspection, Full Range of Motion Extremities: Normal Inspection, Normal Range of Motion, Non-Tender, No Pedal Edema, Normal Capillary Refill Neurological: Alert, Oriented, CN II-XII Intact, Normal Cognition, Normal Gait, Normal Reflexes, No Motor/Sensory Deficits Psychiatric: Normal Affect, Normal Mood Skin Exam: Warm #1 Interpretation EKG Date: 07/27/21 Time: 18:35 Rhythm: NSR Rate (Beats/Min): 57 [place]: Normal P-Wave: Present QRS: Normal ST-T: Normal QT: Normal HI/PQ Interval: 218 Comparison: NA - No Prior EKG EKG Interpretation Comments: NSR LVH Course - Vital Signs Text/Narrative:: Lab/EKG/Head CT result was reviewed and discussed with patient and his family ASA 243 PO x1 Hydralazine 20 mg IV x1 Cardiology consult at [facility] was done with Dr. SALAZAR(Brenda) who made the following recommendations: Admit patient to observation with tele and serial cardiac enzymes. If the cardiac enzymes are negative and prior to discharge, [employer] dean Dr Lucas/Reggie/MARIE need to be informed and ask if they can do the stress test earlier than 08/04/21. He is scheduled to have the stress test on this day. Last Recorded V/S: Last Vital Signs Temp 36.4 C 07/28/21 00:00 Pulse 78 07/28/21 00:00 Resp 16 07/28/21 00:00 BP 133/82 07/28/21 00:00 Pulse Ox 96 07/28/21 00:00 - Orders/Labs/Meds Orders: Active Orders 24 hr Category Date Time Status Chest 1V Frontal [CR] Stat Exams 07/27/21 18:07 Ordered Head wo Cont [CT] Stat Exams 07/27/21 18:37 Taken Sodium Chloride 0.9% [Saline Flush] Med 07/27/21 18:07 Active 10 ml FLUSH ASDIRECTED PRN Saline Lock Insert [OM.PC] Routine Oth 07/27/21 18:07 Ordered EKG 12 Lead [EK] Routine Ther 07/27/21 18:07 Ordered Medication Orders Apixaban (Apixaban 5 Mg Tab) 5 mg PO BID [facility] Last Admin: 07/27/21 21:20 Dose: Not Given Documented by: MAGGIE Aspirin (Aspirin 81 Mg Tab.Chew) 81 mg PO DAILY [facility] Carbidopa/Levodopa (Carbidopa/Levodopa 25-100 Mg Tab) 1 tab PO TID PRN PRN Reason: other Carvedilol (Carvedilol 6.25 Mg Tab) 6.25 mg PO BID [facility] Last Admin: 07/27/21 21:20 Dose: Not Given Documented by: MAGGIE Hydralazine HCl (Hydralazine 10 Mg Tab) 20 mg PO Q6H PRN PRN Reason: Hypertension Hydralazine HCl (Hydralazine 20 Mg/Ml Sdv) 20 mg IVPUSH Q6H PRN PRN Reason: z Losartan Potassium (Losartan 50 Mg Tab) 50 mg PO BID [facility] Last Admin: 07/27/21 21:20 Dose: Not Given Documented by: MAGGIE Metronidazole (Metronidazole 45 Gm Tube) 0 gm TOP BID PRN PRN Reason: rash Nitroglycerin (Nitroglycerin 0.4 Mg Tab.Sl) 0.4 mg SL ASDIRECTED PRN PRN Reason: Chest Pain Oxybutynin Chloride (Oxybutynin 5 Mg Tab.Er) 5 mg PO DAILY [facility] Pantoprazole Sodium (Pantoprazole 40 Mg Tab.Cr) 40 mg PO ACBREAKFAST [facility] Rosuvastatin Calcium (Rosuvastatin 20 Mg Tab) 20 mg PO DAILY [facility] Sodium Chloride (Sodium Chloride 0.9% 10 Ml Syringe) 10 ml FLUSH ASDIRECTED PRN PRN Reason: Keep Vein Open Spironolactone (Spironolactone 25 Mg Tab) 25 mg PO DAILY AMRIZOL Labs: Laboratory Tests 07/27/21 07/27/21 07/27/21 Range/Units 17:00 18:00 18:00 WBC 7.2 (3.2-10.1) x10-3/uL RBC 4.69 (3.90-5.90) x10(6)uL Hgb 13.9 (12.9-17.7) g/dL Hct 42.7 (38.3-50.1) % MCV 91.2 (80.8-98.7) fL MCH 29.6 (27.0-33.3) pg MCHC 32.5 (28.7-35.3) g/dL RDW 14.1 (12.4-15.0) % Plt Count 234 (117-477) x10(3)uL MPV 7.9 (6.7-11.0) fL Neut % (Auto) 63.8 (40.3-71.8) % Lymph % (Auto) 22.6 (15.8-45.3) % [place] % (Auto) 8.2 (5.5-15.2) % Eos % (Auto) 4.6 (0.1-6.8) % Baso % (Auto) 0.8 (0.3-3.8) % Neut # (Auto) 4.6 (1.7-6.9) x10-3/uL Lymph # (Auto) 1.6 (0.5-4.5) x10-3/uL [place] # (Auto) 0.6 (0.0-1.2) x10-3/uL Eos # (Auto) 0.3 (0.0-0.6) x10-3/uL Baso # (Auto) 0.1 (0.0-0.3) x10-3/uL PT 11.0 (9.0-11.1) sec INR 1.02 (1.00-1.24) APTT 26.0 (24.4-33.2) SECONDS D-Dimer, Quantitative 1.04 H (0.0-0.59) mg/LFEU Sodium 137 (135-145) mmol/L Potassium 3.6 (3.5-5.3) mmol/L Chloride 102 (100-110) mmol/L Carbon Dioxide 24 (21-32) mmol/L BUN 14 (7-18) mg/dL Creatinine 1.1 (0.70-1.30) mg/dL Est Cr Clr Drug Dosing 61.59 mL/min Estimated GFR (MDRD) > 60 (>60) BUN/Creatinine Ratio 12.7 (9-20) Glucose 135 H (80-116) mg/dL Calcium 8.4 L (8.6-10.2) mg/dL Total Bilirubin 0.4 (0.1-1.3) mg/dL AST 13 D (5-25) IU/L ALT 21 D (12-36) U/L Alkaline Phosphatase 74 (56-112) IU/L Troponin I (4.0-60.3) pg/mL NT-Pro-B Natriuret Pep (<=125) pg/mL Total Protein 6.9 (6.0-8.0) g/dL Albumin 3.6 (3.2-4.6) g/dL Globulin 3.3 g/dL Albumin/Globulin Ratio 1.1 SARS-CoV-2 RNA (SERGIO) (NEGATIVE) 07/27/21 07/27/21 Range/Units 18:00 19:39 WBC (3.2-10.1) x10-3/uL RBC (3.90-5.90) x10(6)uL Hgb (12.9-17.7) g/dL Hct (38.3-50.1) % MCV (80.8-98.7) fL MCH (27.0-33.3) pg MCHC (28.7-35.3) g/dL RDW (12.4-15.0) % Plt Count (117-477) x10(3)uL MPV (6.7-11.0) fL Neut % (Auto) (40.3-71.8) % Lymph % (Auto) (15.8-45.3) % [place] % (Auto) (5.5-15.2) % Eos % (Auto) (0.1-6.8) % Baso % (Auto) (0.3-3.8) % Neut # (Auto) (1.7-6.9) x10-3/uL Lymph # (Auto) (0.5-4.5) x10-3/uL [place] # (Auto) (0.0-1.2) x10-3/uL Eos # (Auto) (0.0-0.6) x10-3/uL Baso # (Auto) (0.0-0.3) x10-3/uL PT (9.0-11.1) sec INR (1.00-1.24) APTT (24.4-33.2) SECONDS D-Dimer, Quantitative (0.0-0.59) mg/LFEU Sodium (135-145) mmol/L Potassium (3.5-5.3) mmol/L Chloride (100-110) mmol/L Carbon Dioxide (21-32) mmol/L BUN (7-18) mg/dL Creatinine (0.70-1.30) mg/dL Est Cr Clr Drug Dosing mL/min Estimated GFR (MDRD) (>60) BUN/Creatinine Ratio (9-20) Glucose (80-116) mg/dL Calcium (8.6-10.2) mg/dL Total Bilirubin (0.1-1.3) mg/dL AST (5-25) IU/L ALT (12-36) U/L Alkaline Phosphatase (56-112) IU/L Troponin I 9.1 (4.0-60.3) pg/mL NT-Pro-B Natriuret Pep 776 H (<=125) pg/mL Total Protein (6.0-8.0) g/dL Albumin (3.2-4.6) g/dL Globulin g/dL Albumin/Globulin Ratio SARS-CoV-2 RNA (SERGIO) Negative (NEGATIVE) Meds: Medications Generic Name Dose Route Start Last Admin Trade Name Freq PRN Reason Stop Dose Admin Apixaban 5 mg 07/27/21 21:00 07/27/21 21:20 Apixaban 5 Mg Tab PO Not Given BID MARIZOL Aspirin 81 mg 07/28/21 09:00 Aspirin 81 Mg Tab.Chew PO DAILY MARIZOL Carbidopa/Levodopa 1 tab 07/27/21 19:51 Carbidopa/Levodopa 25-100 Mg Tab PO TID PRN other Carvedilol 6.25 mg 07/27/21 21:00 07/27/21 21:20 Carvedilol 6.25 Mg Tab PO Not Given BID MARIZOL Hydralazine HCl 20 mg 07/27/21 19:51 Hydralazine 10 Mg Tab PO Q6H PRN Hypertension Hydralazine HCl 20 mg 07/27/21 19:55 Hydralazine 20 Mg/Ml Sdv IVPUSH Q6H PRN z Losartan Potassium 50 mg 07/27/21 21:00 07/27/21 21:20 Losartan 50 Mg Tab PO Not Given BID MARIZOL Metronidazole 0 gm 07/27/21 19:51 Metronidazole 45 Gm Tube TOP BID PRN rash Nitroglycerin 0.4 mg 07/27/21 19:51 Nitroglycerin 0.4 Mg Tab.Sl SL ASDIRECTED PRN Chest Pain Oxybutynin Chloride 5 mg 07/28/21 09:00 Oxybutynin 5 Mg Tab.Er PO DAILY MARIZOL Pantoprazole Sodium 40 mg 07/28/21 07:30 Pantoprazole 40 Mg Tab.Cr PO ACBREAKFAST [facility] Rosuvastatin Calcium 20 mg 07/28/21 09:00 Rosuvastatin 20 Mg Tab PO DAILY [facility] Sodium Chloride 10 ml 07/27/21 18:07 Sodium Chloride 0.9% 10 Ml Syringe FLUSH ASDIRECTED PRN Keep Vein Open Spironolactone 25 mg 07/28/21 09:00 Spironolactone 25 Mg Tab PO DAILY MARIZOL Discontinued Medications Generic Name Dose Route Start Last Admin Trade Name Freq PRN Reason Stop Dose Admin Aspirin 324 mg 07/27/21 18:09 07/27/21 18:44 Aspirin 81 Mg Tab.Chew PO 07/27/21 18:10 Not Given NOW STA Aspirin 243 mg 07/27/21 18:39 07/27/21 18:44 Aspirin 81 Mg Tab.Chew PO 07/27/21 18:40 243 mg NOW STA Administration Hydralazine HCl 20 mg 07/27/21 18:09 07/27/21 18:42 Hydralazine 20 Mg/Ml Sdv IVPUSH 07/27/21 18:10 20 mg NOW STA Administration Departure - Departure Time of Disposition: 20:00 Disposition: Refer to Observation Condition: Good Clinical Impression: Hypertensive crisis, Chest pain, Hypertension, Dyslipidemia, GERD (gastroesophageal reflux disease) Sepsis Event Note (ED) - Evaluation Sepsis Screening Result: No Definite Risk - Focused Exam Vital Signs: Vital Signs Temp Pulse Resp BP Pulse Ox 07/27/21 19:00 59 L 18 157/75 H 98 07/27/21 17:49 36.4 C 54 L 18 207/92 H 98 - My Orders Last 24 Hours: My Active Orders 07/27/21 18:07 Chest 1V Frontal [CR] Stat Sodium Chloride 0.9% [Saline Flush] 10 ml FLUSH ASDIRECTED PRN Saline Lock Insert [OM.PC] Routine EKG 12 Lead [EK] Routine 07/27/21 18:37 Head wo Cont [CT] Stat - Assessment/Plan Last 24 Hours: My Active Orders 07/27/21 18:07 Chest 1V Frontal [CR] Stat Sodium Chloride 0.9% [Saline Flush] 10 ml FLUSH ASDIRECTED PRN Saline Lock Insert [OM.PC] Routine EKG 12 Lead [EK] Routine 07/27/21 18:37 Head wo Cont [CT] Stat
[2021-07-28] MEDS ORDERED: Pantoprazole 40 MG Tab.CR PO SCH (07:30)
[2021-07-28] MEDS ORDERED: Rosuvastatin 20 MG Tab PO SCH (09:00)
[2021-07-28] MEDS ORDERED: Oxybutynin 5 MG Tab.ER PO SCH (09:00)
[2021-07-28] MEDS ORDERED: Spironolactone 25 MG Tab *PTOM PO SCH ×2 (09:00→12:00)
[2021-07-28] MEDS ORDERED: Aspirin 81 MG Tab.Chew PO SCH (09:00)
[2021-07-28] MEDS: HYDRALAZINE 10 MG PO PRN ×2 (09:11→22:04)
[2021-07-28] MEDS: Carvedilol 6.25 MG Tab *PTOM PO SCH ×2 (10:22→20:37)
[2021-07-28] MEDS: Aspirin 81 MG Tab.EC *PTOM PO SCH (10:23)
[2021-07-28] MEDS: Carbidopa/Levodopa 25-100 MG Tab *PTOM PO SCH (10:23)
[2021-07-28] MEDS: ESOMEPRAZOLE 40 MG PO SCH (10:23)
[2021-07-28] MEDS: Losartan 50 MG Tab *PTOM PO SCH ×2 (10:24→20:38)
[2021-07-28] MEDS: Apixaban 5 MG Tab *PTOM PO SCH ×2 (10:24→20:40)
--- NOTE | 2021-07-28 11:06 | PCM.HP.2 ---
H&P History of Present Illness - General Date of Service: 07/28/21 Admit Problem/Dx: Admission Diagnosis/Problem Admission Diagnosis/Problem Chest pain Source of Information: Patient, Family, Provider History Limitations: Reports: No Limitations - History of Present Illness Initial Comments - Free Text/Narative: Randy presented to ER yesterday afternoon, started having chest tightness, heavy arms, facial pressure about 1630 checked his SBP was 180, he took Hydralazine 10 mg x 1 then repeated in 30 min, it had gone up, so took another 10 mg Hydralazine as prescribed and it went up further so he took all his evening meds and came to ER. He has been seen in ER on 07/21 for hypertensive crisis, he was seen on 07/26 by Cardiology, Dr Glass who started him on Spironolactone 25 mg daily as he was on maximum dose of Coreg(HR 60s) & Losartan. He was also seen in ER again evening of 07/26 into 07/27 and followed up in [facility] on later that day of 07/27. He had hydralazine 10 mg 1-2 tabs q6h as needed for SBP > 150. He states his morning medications have been bringing his pressures down to 130s but then it goes up in the afternoons. He has taken 2 dose of Spironolactone so far, evening of 07/26 and afternoon of 07/27. He was scheduled for stress test on 08/04 but cardiology recommended to Dr Sauceda last evening to notify them if his troponin were negative x 3 and when he would be discharged so they can move up his stress test to earlier next week. States he had some blurred vision last night and again this morning. No slurred speech or limb weakness but was unst shai on his feet per his when she brought him in yesterday. History of CABG x 10 in 2000, stent placed in 2014. 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 History of AAA, last measured 4 cm 2019, has not had this years follow up yet. Denies any fevers, chills, cough, nausea, vomiting, diarrhea. Urinating normally. No diaphoresis. In ER: troponin was 9.1, 11.2, WBC and Chemistry WNL. Covid negative. Received dose of Hydralazine 20 mg IV which brought his pressure down to 139/78. Aspirin 243 mg x [address] head was negative for acute changes. Dr Sauceda spoke with Dr Garcia(see his note), [facility] who recommended admission for serial cardiac enzymes and monitoring and to notify Cardiology clinic to get his stress test moved up if his troponin remained negative. bilateral arm Pain Score (Numeric/FACES): 3 - Related Data Allergies/Adverse Reactions: Allergies Allergy/AdvReac Type Severity Reaction Status Date / Time celecoxib [From Celebrex] Allergy Shortness Verified 07/27/21 18:10 of Breath Home Medications: Home Meds Carbidopa/Levodopa [Carbidopa-Levodopa 25-100 Tab] 1 tab PO TID PRN 03/05/17 [History] Esomeprazole [NexIUM] 40 mg PO DAILY 03/05/17 [History] Losartan [Cozaar] 50 mg PO BID 03/05/17 [History] Nitroglycerin [Nitrostat] 0.4 mg SL ASDIRECTED PRN 03/05/17 [History] Oxybutynin [Oxybutynin ER] 5 mg PO BEDTIME 07/22/21 [History] Rosuvastatin [Crestor] 20 mg PO BEDTIME 07/22/21 [History] carvediloL [Coreg] 6.25 mg PO BID 07/22/21 [History] Apixaban [Eliquis] 5 mg BID 07/27/21 [History] Spironolactone [Aldactone] 25 mg PO DAILY 07/27/21 [History] hydrALAZINE [Apresoline] 10 - 20 mg PO Q6HR PRN 07/27/21 [History] metroNIDAZOLE [metroNIDAZOLE 0.75% Gel] 1 applic BID PRN 07/27/21 [History] Aspirin [Adult Low Dose Aspirin EC] 81 mg PO DAILY 07/28/21 [History] Past Medical History HEENT History: Reports: Other (See Below) Other HEENT History: 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 Respiratory History: Reports: None Gastrointestinal History: Reports: GERD, Other (See Below) Other Gastrointestinal History: SEGURA'S ESOPHAGUS Genitourinary History: Reports: Prostate Disorder, Other (See Below) Other Genitourinary History: hx prostate CA Musculoskeletal History: Reports: Other (See Below) Other Musculoskeletal History: CLAUDICATION OF BILAT LOWER EXTREMITIES Neurological History: Reports: Other (See Below) Other Neuro History: Experiences Tremors, patients states non-Parkinson's. Psychiatric History: Reports: Anxiety Hematologic History: Reports: Anemia, Anticoagulation Therapy Oncologic (Cancer) History: Reports: Lung, Prostate - Infectious Disease History Infectious Disease History: Reports: Chicken Pox, Measles, Mumps - Past Surgical History Cardiovascular Surgical History: Reports: Coronary Artery Bypass Other Cardiovascular Surgeries/Procedures: Bypass 17 years ago. Has had 10 bypass in 2000 Respiratory Surgical History: Reports: Other (See Below) Other Respiratory Surgeries/Procedures: L upper lobe removed for lung CA GI Surgical History: Reports: Colonoscopy, EGD Male Surgical History: Reports: Prostate Biopsy Musculoskeletal Surgical History: Reports: Arthroscopic Knee Other Musculoskeletal Surgeries/Procedures:: bilat knee scope Oncologic Surgical History: Reports: Lobectomy Other Oncologic Surgeries/Procedures: L upper lobe lobectomy, had radiation for prostate CA Social & Family History - Family History Family Medical History: No Pertinent Family History - Tobacco Use Tobacco Use Status *Q: Light Tobacco User Years of Tobacco use: 15 Packs/Tins Daily: 1 Used Tobacco, but Quit: No Second Hand Smoke Exposure: No - Caffeine Use Caffeine Use: Reports: None - Alcohol Use Days Per Week of Alcohol Use: 3 Number of Drinks Per Day: 2 Total Drinks Per Week: 6 - Recreational Drug Use Recreational Drug Use: No H&P Review of Systems - Review of Systems: Review Of Systems: Comprehensive ROS is negative, except as noted in HPI. Exam - Exam Exam: See Below - Vital Signs Vital Signs: Last Vital Signs Temp 97.8 F 07/28/21 03:56 Pulse 55 L 07/28/21 10:22 Resp 18 07/28/21 08:55 BP 163/78 H 07/28/21 10:24 Pulse Ox 95 07/28/21 08:55 Weight: 186 lb 14.4 oz - Exam General: Alert, Oriented, Cooperative, Mild Distress HEENT: PERRLA, Conjunctiva Clear, EOMI, Hearing Intact, Mucosa Moist & [place] Neck: Trachea Midline Lungs: Clear to Auscultation, Normal Respiratory Effort, Decreased Breath Sounds (bibasilar) Cardiovascular: Regular Rate, Regular Rhythm GI/Abdominal Exam: Normal Bowel Sounds, Soft, Non-Tender, No Distention (Male) Exam: Deferred Rectal (Males) Exam: Deferred Extremities: No Pedal Edema, Normal Capillary Refill Peripheral Pulses: 1+: Posterior Tibial (L), Posterior Tibial (R), Dorsalis Pedis (L), Dorsalis Pedis (R), 2+: Radial (L), Radial (R) Skin: Warm, Dry, Intact Neurological: Strength Equal Bilateral, Normal Speech, Normal Tone Neuro Extensive - Mental Status: Normal Cognition Neuro Extensive - Motor, Sensory, Reflexes: Motor/Sensory Deficits (no new focal deficits, loss of right visual field chronic). No: Dysarthria, Receptive Aphasia, Expressive Aphasia, Facial Palsy (R), Facial palsy (L), Hemeplagia (R), Hemeplagia (L) Psychiatric: Anxious - Patient Data Lab Results Last 24 hrs: Laboratory Results - last 24 hr 07/27/21 07/27/21 07/27/21 Range/Units 17:00 18:00 18:00 WBC 7.2 (3.2-10.1) x10-3/uL RBC 4.69 (3.90-5.90) x10(6)uL Hgb 13.9 (12.9-17.7) g/dL Hct 42.7 (38.3-50.1) % MCV 91.2 (80.8-98.7) fL MCH 29.6 (27.0-33.3) pg MCHC 32.5 (28.7-35.3) g/dL RDW 14.1 (12.4-15.0) % Plt Count 234 (117-477) x10(3)uL MPV 7.9 (6.7-11.0) fL Neut % (Auto) 63.8 (40.3-71.8) % Lymph % (Auto) 22.6 (15.8-45.3) % [place] % (Auto) 8.2 (5.5-15.2) % Eos % (Auto) 4.6 (0.1-6.8) % Baso % (Auto) 0.8 (0.3-3.8) % Neut # (Auto) 4.6 (1.7-6.9) x10-3/uL Lymph # (Auto) 1.6 (0.5-4.5) x10-3/uL [place] # (Auto) 0.6 (0.0-1.2) x10-3/uL Eos # (Auto) 0.3 (0.0-0.6) x10-3/uL Baso # (Auto) 0.1 (0.0-0.3) x10-3/uL PT 11.0 (9.0-11.1) sec INR 1.02 (1.00-1.24) APTT 26.0 (24.4-33.2) SECONDS D-Dimer, Quantitative 1.04 H (0.0-0.59) mg/LFEU Sodium 137 (135-145) mmol/L Potassium 3.6 (3.5-5.3) mmol/L Chloride 102 (100-110) mmol/L Carbon Dioxide 24 (21-32) mmol/L BUN 14 (7-18) mg/dL Creatinine 1.1 (0.70-1.30) mg/dL Est Cr Clr Drug Dosing 61.59 mL/min Estimated GFR (MDRD) > 60 (>60) BUN/Creatinine Ratio 12.7 (9-20) Glucose 135 H (80-116) mg/dL Calcium 8.4 L (8.6-10.2) mg/dL Total Bilirubin 0.4 (0.1-1.3) mg/dL AST 13 D (5-25) IU/L ALT 21 D (12-36) U/L Alkaline Phosphatase 74 (56-112) IU/L Troponin I (4.0-60.3) pg/mL NT-Pro-B Natriuret Pep (<=125) pg/mL Total Protein 6.9 (6.0-8.0) g/dL Albumin 3.6 (3.2-4.6) g/dL Globulin 3.3 g/dL Albumin/Globulin Ratio 1.1 SARS-CoV-2 RNA (SERGIO) (NEGATIVE) 07/27/21 07/27/21 07/28/21 Range/Units 18:00 19:39 00:07 WBC (3.2-10.1) x10-3/uL RBC (3.90-5.90) x10(6)uL Hgb (12.9-17.7) g/dL Hct (38.3-50.1) % MCV (80.8-98.7) fL MCH (27.0-33.3) pg MCHC (28.7-35.3) g/dL RDW (12.4-15.0) % Plt Count (117-477) x10(3)uL MPV (6.7-11.0) fL Neut % (Auto) (40.3-71.8) % Lymph % (Auto) (15.8-45.3) % [place] % (Auto) (5.5-15.2) % Eos % (Auto) (0.1-6.8) % Baso % (Auto) (0.3-3.8) % Neut # (Auto) (1.7-6.9) x10-3/uL Lymph # (Auto) (0.5-4.5) x10-3/uL [place] # (Auto) (0.0-1.2) x10-3/uL Eos # (Auto) (0.0-0.6) x10-3/uL Baso # (Auto) (0.0-0.3) x10-3/uL PT (9.0-11.1) sec INR (1.00-1.24) APTT (24.4-33.2) SECONDS D-Dimer, Quantitative (0.0-0.59) mg/LFEU Sodium (135-145) mmol/L Potassium (3.5-5.3) mmol/L Chloride (100-110) mmol/L Carbon Dioxide (21-32) mmol/L BUN (7-18) mg/dL Creatinine (0.70-1.30) mg/dL Est Cr Clr Drug Dosing mL/min Estimated GFR (MDRD) (>60) BUN/Creatinine Ratio (9-20) Glucose (80-116) mg/dL Calcium (8.6-10.2) mg/dL Total Bilirubin (0.1-1.3) mg/dL AST (5-25) IU/L ALT (12-36) U/L Alkaline Phosphatase (56-112) IU/L Troponin I 9.1 11.2 (4.0-60.3) pg/mL NT-Pro-B Natriuret Pep 776 H (<=125) pg/mL Total Protein (6.0-8.0) g/dL Albumin (3.2-4.6) g/dL Globulin g/dL Albumin/Globulin Ratio SARS-CoV-2 RNA (SERGIO) Negative (NEGATIVE) 07/28/21 07/28/21 07/28/21 Range/Units 06:10 06:10 06:10 WBC 6.5 (3.2-10.1) x10-3/uL RBC 4.68 (3.90-5.90) x10(6)uL Hgb 13.9 (12.9-17.7) g/dL Hct 42.3 (38.3-50.1) % MCV 90.5 (80.8-98.7) fL MCH 29.7 (27.0-33.3) pg MCHC 32.8 (28.7-35.3) g/dL RDW 14.0 (12.4-15.0) % Plt Count 221 (117-477) x10(3)uL MPV 8.1 (6.7-11.0) fL Neut % (Auto) 62.7 (40.3-71.8) % Lymph % (Auto) 21.8 (15.8-45.3) % [place] % (Auto) 10.4 (5.5-15.2) % Eos % (Auto) 4.3 (0.1-6.8) % Baso % (Auto) 0.8 (0.3-3.8) % Neut # (Auto) 4.1 (1.7-6.9) x10-3/uL Lymph # (Auto) 1.4 (0.5-4.5) x10-3/uL [place] # (Auto) 0.7 (0.0-1.2) x10-3/uL Eos # (Auto) 0.3 (0.0-0.6) x10-3/uL Baso # (Auto) 0.1 (0.0-0.3) x10-3/uL PT (9.0-11.1) sec INR (1.00-1.24) APTT (24.4-33.2) SECONDS D-Dimer, Quantitative (0.0-0.59) mg/LFEU Sodium 139 (135-145) mmol/L Potassium 4.3 (3.5-5.3) mmol/L Chloride 105 (100-110) mmol/L Carbon Dioxide 28 (21-32) mmol/L BUN 13 (7-18) mg/dL Creatinine 1.1 (0.70-1.30) mg/dL Est Cr Clr Drug Dosing 62.60 mL/min Estimated GFR (MDRD) > 60 (>60) BUN/Creatinine Ratio 11.8 (9-20) Glucose 93 (80-116) mg/dL Calcium 8.7 (8.6-10.2) mg/dL Total Bilirubin 0.6 (0.1-1.3) mg/dL AST 14 (5-25) IU/L ALT 24 D (12-36) U/L Alkaline Phosphatase 71 (56-112) IU/L Troponin I 9.7 (4.0-60.3) pg/mL NT-Pro-B Natriuret Pep (<=125) pg/mL Total Protein 6.6 (6.0-8.0) g/dL Albumin 3.5 (3.2-4.6) g/dL Globulin 3.1 g/dL Albumin/Globulin Ratio 1.1 SARS-CoV-2 RNA (SERGIO) (NEGATIVE) Result Diagrams: 07/28/21 06:10 07/28/21 06:10 Sepsis Event Note - Evaluation Sepsis Screening Result: No Definite Risk - Focused Exam Vital Signs: Vital Signs Temp Pulse Pulse Pulse Resp BP BP 07/28/21 10:24 163/78 H 07/28/21 10:22 55 L 163/78 H 07/28/21 09:11 171/83 H 07/28/21 08:55 66 18 171/83 H 07/28/21 04:00 07/28/21 03:56 97.8 F 56 L 16 139/78 07/28/21 00:00 97.5 F 78 16 133/82 Pulse Ox 07/28/21 10:24 07/28/21 10:22 07/28/21 09:11 07/28/21 08:55 95 07/28/21 04:00 97 07/28/21 03:56 97 07/28/21 00:00 96 *Q Meaningful Use (ADM) - VTE Risk Assess *Q Each Risk Factor Represents 1 Point: None Total Score 1 Point Risk Factors: 0 Each Risk Factor Represents 2 Points: Age 60 - 74 Years Total Score 2 Point Risk Factors: 2 Each Risk Factor Represents 3 Points: None Total Score 3 Point Risk Factors: 0 Each Risk Factor Represents 5 Points: None Total Score 5 Point Risk Factors: 0 Venous Thromboembolism Risk Factor Score *Q: 2 - Problem List (1) Hypertensive crisis SNOMED Code(s): 971526939 ICD Code: I16.9 - HYPERTENSIVE CRISIS, UNSPECIFIED Status: Acute Current Visit: Yes (2) Chest pain SNOMED Code(s): 18393211 ICD Code: R07.9 - CHEST PAIN, UNSPECIFIED Status: Acute Current Visit: Yes (3) History of CVA (cerebrovascular accident) SNOMED Code(s): 110727968 ICD Code: Z86.73 - PRSNL HX OF TIA (TIA), AND CEREB INFRC W/O RESID DEFICITS Status: Acute Current Visit: Yes (4) Hypertension SNOMED Code(s): 54575579 ICD Code: I10 - ESSENTIAL (PRIMARY) HYPERTENSION Status: Chronic Current Visit: Yes (5) Dyslipidemia SNOMED Code(s): 874338897 ICD Code: E78.5 - HYPERLIPIDEMIA, UNSPECIFIED Status: Chronic Current Visit: Yes (6) GERD (gastroesophageal reflux disease) SNOMED Code(s): 570037410 ICD Code: K21.9 - GASTRO-ESOPHAGEAL REFLUX DISEASE WITHOUT ESOPHAGITIS Sta tus: Chronic Current Visit: Yes (7) AAA (abdominal aortic aneurysm) without rupture SNOMED Code(s): 21603444 ICD Code: I71.4 - ABDOMINAL AORTIC ANEURYSM, WITHOUT RUPTURE Status: Chronic Current Visit: Yes Onset Date: ~2019 (8) Hx of coronary artery bypass graft SNOMED Code(s): 394570813, 176475989 ICD Code: Z95.1 - PRESENCE OF AORTOCORONARY BYPASS GRAFT Status: Chronic Current Visit: Yes Onset Date: ~2000 Problem List Initiated/Reviewed/Updated: Yes Orders Last 24hrs: Active Orders 24 hr Category Date Time Status Patient Status [ADT] Routine ADT 07/27/21 19:43 Active Cardiac Monitoring [RC] 08,16,00 Care 07/27/21 19:46 Active Oxygen Therapy [RC] PRN Care 07/27/21 19:43 Active Pulse Oximetry [RC] 08,12,16,20,00,04 Care 07/27/21 19:46 Active Up With Assistance [RC] ASDIRECTED Care 07/27/21 19:43 Active Vital Signs [RC] 08,12,16,20,00,04 Care 07/27/21 19:43 Active Heart Healthy Diet [DIET] Diet 07/28/21 Breakfast Active Head wo Cont [CT] Stat Exams 07/27/21 18:37 Taken Apixaban [Eliquis] Med 07/27/21 21:00 Active 5 mg PO BID Aspirin [Halfprin] Med 07/28/21 09:00 Active 81 mg PO DAILY Carbidopa/Levodopa [Sinemet 25-100 mg] Med 07/28/21 10:00 Active 1 tab PO DAILY Losartan [Cozaar] Med 07/27/21 21:00 Active 50 mg PO BID Nitroglycerin [Nitrostat] Med 07/27/21 19:51 Active 0.4 mg SL ASDIRECTED PRN Non-Formulary Medication [NF Drug] Med 07/28/21 09:00 Active 1 each PO DAILY Oxybutynin [Oxybutynin ER] Med 07/28/21 21:00 Active 5 mg PO BEDTIME Rosuvastatin [Crestor] Med 07/28/21 21:00 Active 20 mg PO BEDTIME Sodium Chloride 0.9% [Saline Flush] Med 07/27/21 18:07 Active 10 ml FLUSH ASDIRECTED PRN Spironolactone [Aldactone] Med 07/28/21 12:00 Active 25 mg PO 1200 carvediloL [Coreg] Med 07/27/21 21:00 Active 6.25 mg PO BID hydrALAZINE [Apresoline] Med 07/27/21 19:51 Active 20 mg PO Q6H PRN Saline Lock Insert [OM.PC] Routine Oth 07/27/21 18:07 Ordered Sequential Compression Device [OM.PC] Per Unit Routine Oth 07/27/21 19:46 Ordered Resuscitation Status Routine Resus Stat 07/27/21 19:43 Ordered EKG 12 Lead [EK] Routine Ther 07/27/21 18:07 Ordered Medication Orders Apixaban (Apixaban 5 Mg Tab *Ptom*) 5 mg PO BID MARIZOL Last Admin: 07/28/21 10:24 Dose: 5 mg Documented by: Admin: 07/27/21 21:20 Dose: Not Given Documented by: MAGGIE Aspirin (Aspirin 81 Mg Tab.Ec *Ptom*) 81 mg PO DAILY [facility] Last Admin: 07/28/21 10:23 Dose: 81 mg Documented by: [id number] Carbidopa/Levodopa (Carbidopa/Levodopa 25-100 Mg Tab *Ptom*) 1 tab PO DAILY [facility] Last Admin: 07/28/21 10:23 Dose: 1 tab Documented by: [id number] Carvedilol (Carvedilol 6.25 Mg Tab *Ptom*) 6.25 mg PO BID [facility] Last Admin: 07/28/21 10:22 Dose: 6.25 mg Documented by: [id number] Admin: 07/27/21 21:20 Dose: Not Given Documented by: MAGGIE Hydralazine HCl (Hydralazine 10 Mg Tab *Ptom*) 20 mg PO Q6H PRN PRN Reason: Hypertension Last Admin: 07/28/21 09:11 Dose: 20 mg Documented by: ZARA Losartan Potassium (Losartan 50 Mg Tab *Ptom*) 50 mg PO BID [facility] Last Admin: 07/28/21 10:24 Dose: 50 mg Documented by: [id number] Admin: 07/27/21 21:20 Dose: Not Given Documented by: MAGGIE Nitroglycerin (Nitroglycerin 0.4 Mg Tab.Sl *Ptom*) 0.4 mg SL ASDIRECTED PRN PRN Reason: Chest Pain Esomeprazole 40mg (Cap *Ptom*) 1 each PO DAILY [facility] Last Admin: 07/28/21 10:23 Dose: 1 each Documented by: [id number] Oxybutynin Chloride (Oxybutynin 5 Mg Tab.Er *Ptom*) 5 mg PO BEDTIME [facility] Rosuvastatin Calcium (Rosuvastatin 20 Mg Tab *Ptom*) 20 mg PO BEDTIME [facility] Sodium Chloride (Sodium Chloride 0.9% 10 Ml Syringe) 10 ml FLUSH ASDIRECTED PRN PRN Reason: Keep Vein Open Spironolactone (Spironolactone 25 Mg Tab *Ptom*) 25 mg PO 1200 [facility] Assessment/Plan Comment:: 1. Admit for observation for chest pain with serial cardiac enzymes and hypertensive crisis. 2. Chest pain: had another episode this morning associated with elevated blood pressure. Troponin 9.1, 11.2, 9.7. Cardiac monitoring. Will notify Cardiology at discharge so they can move up his stress test from 08/04. 3. Hypertensive crisis: Continue Spironolactone 25 mg po daily@1200, Coreg 6.25 mg bid and Losartan 50 mg bid. Hydralazine 20 mg po q6h as needed. Continue to monitor overnight and adjust medications as needed. 4. AAA: CTA abdomen/pelvis with runoff to recheck size as been over a year. Need to keep his blood pressures <130/80 which is also what his neurologist had recommended. 5. Continue home medications for chronic conditions. 6. Diet: Heart Healthy. 7. DVT prophylaxis: SCDs while in bed. Eliquis bid. 8. Disposition: 3 sets of cardiac enzymes are normal, Cardiology had recommended moving his stress test up to an earlier date. Monitor his blood pressures and adjust medications as needed. CTA abdomen/pelvis with run off today. Anticipate discharge in 24-48 hours. - Mortality Measure Prognosis:: Poor
[2021-07-28] MEDS ORDERED: Iopamidol 755 Mg/ML 100 ML Bottle IV ONE (12:09)
--- NOTE | 2021-07-28 15:32 | CT ---
INDICATION: Followup AAA. COMPUTERIZED TOMOGRAPHY ANGIOGRAPHY OF THE ABDOMEN AND PELVIS WITH CONTRAST: Spiral 2.5 mm axial sections were obtained through the abdomen and pelvis with 85 mL [id number] at 4.5 mL/second with sagittal and coronal reconstructions, 07/28/21, and additional volume-rendering 3D examination. Examination was obtained 07/28/21 and is compared with 05/20/20. TOTAL EXAM DLP: 839.30 mGy/cm. The heart appears mildly enlarged and may be moderately increased in size compared with the previous examination. No pericardial effusion was seen. A definite active infiltrate or effusion was not identified in the lower lung jackson and pleural spaces included on this study, with some minimal fibrotic changes at the left lower lobe. The liver appeared normal. No gallstones were demonstrated with a normal sized gallbladder. The adrenal glands are stable and essentially unremarkable. The kidneys showed evidence of mild renal cortical scarring with renal fascial thickening present. At the left kidney, lower middle pole, there is a partially exophytic cyst extending into the lower pole area, small to moderate in size, measuring approximately 30 mm anteroposteriorly and only very slightly increased in size from the previous examination, where it measured 28 mm anteroposteriorly. The spleen appeared essentially normal. No definite pancreatic abnormality was seen. No biliary tree dilatation was noted. No retroperitoneal mass was seen, with retroperitoneal lymphadenopathy, mild and nonspecific, as previously. The appendix is not definitely visualized. No evidence of bowel obstruction or free air was noted. No ventral or inguinal hernia was seen. Thickening of the urinary bladder wall was noted, which may be on the basis of cystitis and should be correlated clinically. Increased size of a fixed hiatal hernia is noted, which is now small to moderate in size. The prostate was not enlarged. There is again noted dilatation of the infrarenal-distal abdominal aorta of approximately 37 mm, unchanged from the previous examination. There is again noted mural thickening and/or plaque in the distal aneurysmic area of the aorta with what may represent a large ulceration now present extending to the right into the plaque-thickened wall. There is again noted dilatation of the common iliac artery on the right, which increases at its proximal portion from a diameter of approximately 25 mm to approximately 26 mm - very little interval change. The mid to distal aorta is rather tortuous, as previously. IMPRESSION: 1. Stable size of infrarenal aortic aneurysm, 37 mm maximum diameter, but with what appears to be a large ulcer now seen, extending into the area of thickened wall on the previous study. 2. 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 3. Increased size of fixed hiatal hernia. 4. ASD. 5. Stable simple cyst lower middle pole left kidney. 6. Thickening of the urinary bladder wall, which may represent cystitis - correlate clinically. MTDD
[2021-07-28] MEDS: Rosuvastatin 20 MG Tab *PTOM PO SCH (20:39)
[2021-07-28] MEDS: OXYBUTYNIN 5 MG PO SCH (20:41)
[2021-07-29] MEDS ORDERED: BENZOCAINE MUCMEM PRN (08:01)
[2021-07-29] MEDS: Carvedilol 6.25 MG Tab *PTOM PO SCH ×2 (08:49→20:41)
[2021-07-29] MEDS: Losartan 50 MG Tab *PTOM PO SCH ×2 (08:50→20:42)
[2021-07-29] MEDS: Apixaban 5 MG Tab *PTOM PO SCH ×2 (08:51→20:44)
[2021-07-29] MEDS: Aspirin 81 MG Tab.EC *PTOM PO SCH (08:51)
[2021-07-29] MEDS: Carbidopa/Levodopa 25-100 MG Tab *PTOM PO SCH (08:52)
[2021-07-29] MEDS: ESOMEPRAZOLE 40 MG PO SCH (08:52)
[2021-07-29] MEDS ORDERED: SPIRONOLACTONE 25 MG PO SCH (12:00)
[2021-07-29] MEDS: amLODIPine 10 MG Tab PO SCH (12:10)
--- NOTE | 2021-07-29 17:02 | PCM.PN ---
- General Info Date of Service: 07/29/21 Subjective Update: Randy had his blood pressures spike again around 1999 last night up to 170s. Has flushing on and off but no further chest pressure. Small BM yesterday, would like something to help him go. NO fevers, chills. Echo 05/2020 showed EF of 35%. - Patient Data Vitals - Most Recent: Last Vital Signs Temp 98.2 F 07/29/21 12:00 Pulse 64 07/29/21 16:00 Resp 18 07/29/21 16:00 BP 136/83 07/29/21 16:00 Pulse Ox 96 07/29/21 16:00 Weight - Most Recent: 186 lb 14.4 oz Med Orders - Current: Current Medications Amlodipine Besylate (Amlodipine 10 Mg Tab) 10 mg PO DAILY@1200 [facility] Last Admin: 07/29/21 12:10 Dose: 10 mg Documented by: Apixaban (Apixaban 5 Mg Tab *Ptom*) 5 mg PO BID [facility] Last Admin: 07/29/21 08:51 Dose: 5 mg Documented by: Aspirin (Aspirin 81 Mg Tab.Ec *Ptom*) 81 mg PO DAILY [facility] Last Admin: 07/29/21 08:51 Dose: 81 mg Documented by: Benzocaine (Benzocaine Dental Gel 5 Gm Tube) 0 gm MUCMEM QID PRN PRN Reason: mouth pain Carbidopa/Levodopa (Carbidopa/Levodopa 25-100 Mg Tab *Ptom*) 1 tab PO DAILY [facility] Last Admin: 07/29/21 08:52 Dose: 1 tab Documented by: Carvedilol (Carvedilol 6.25 Mg Tab *Ptom*) 6.25 mg PO BID [facility] Last Admin: 07/29/21 08:49 Dose: 6.25 mg Documented by: Hydralazine HCl (Hydralazine 10 Mg Tab *Ptom*) 20 mg PO Q6H PRN PRN Reason: Hypertension Last Admin: 07/28/21 22:04 Dose: 20 mg Documented by: Losartan Potassium (Losartan 50 Mg TabOwn Med) 100 mg PO DAILY [facility] Losartan Potassium (Losartan 50 Mg TabOwn Med) 50 mg PO DAILY [facility] Nitroglycerin (Nitroglycerin 0.4 Mg Tab.Sl *Ptom*) 0.4 mg SL ASDIRECTED PRN PRN Reason: Chest Pain Esomeprazole 40mg (Cap *Ptom*) 1 each PO DAILY [facility] Last Admin: 07/29/21 08:52 Dose: 1 each Documented by: Oxybutynin Chloride (Oxybutynin 5 Mg Tab.Er *Ptom*) 5 mg PO BEDTIME [facility] Last Admin: 07/28/21 20:41 Dose: 5 mg Documented by: Rosuvastatin Calcium (Rosuvastatin 20 Mg Tab *Ptom*) 20 mg PO BEDTIME [facility] Last Admin: 07/28/21 20:39 Dose: 20 mg Documented by: Sodium Chloride (Sodium Chloride 0.9% 10 Ml Syringe) 10 ml FLUSH ASDIRECTED PRN PRN Reason: Keep Vein Open Discontinued Medications Aspirin (Aspirin 81 Mg Tab.Chew) 324 mg PO NOW STA Stop: 07/27/21 18:10 Last Admin: 07/27/21 18:44 Dose: Not Given Documented by: Aspirin (Aspirin 81 Mg Tab.Chew) 243 mg PO NOW STA Stop: 07/27/21 18:40 Last Admin: 07/27/21 18:44 Dose: 243 mg Documented by: Aspirin (Aspirin 81 Mg Tab.Chew) 81 mg PO DAILY [facility] Carbidopa/Levodopa (Carbidopa/Levodopa 25-100 Mg Tab *Ptom*) 1 tab PO TID PRN PRN Reason: other Hydralazine HCl (Hydralazine 20 Mg/Ml Sdv) 20 mg IVPUSH NOW STA Stop: 07/27/21 18:10 Last Admin: 07/27/21 18:42 Dose: 20 mg Documented by: Iopamidol (Iopamidol 755 Mg/Ml 100 Ml Bottle) 85 ml IV . DIRECTED ONE Stop: 07/28/21 12:10 Last Admin: 07/28/21 12:55 Dose: 85 ml Documented by: Losartan Potassium (Losartan 50 Mg Tab *Ptom*) 50 mg PO BID [facility] Last Admin: 07/29/21 08:50 Dose: 50 mg Documented by: Oxybutynin Chloride (Oxybutynin 5 Mg Tab.Er) 5 mg PO DAILY [facility] Pantoprazole Sodium (Pantoprazole 40 Mg Tab.Cr) 40 mg PO ACBREAKFAST [facility] Last Admin: 07/28/21 11:16 Dose: Not Given Documented by: Rosuvastatin Calcium (Rosuvastatin 20 Mg Tab) 20 mg PO DAILY [facility] Last Admin: 07/28/21 11:16 Dose: Not Given Documented by: Spironolactone (Spironolactone 25 Mg Tab *Ptom*) 25 mg PO DAILY [facility] Last Admin: 07/28/21 11:16 Dose: Not Given Documented by: Spironolactone (Spironolactone 25 Mg Tab *Ptom*) 25 mg PO 1200 [facility] Last Admin: 07/28/21 12:03 Dose: 25 mg Documented by: Spironolactone (Spironolactone 25 Mg TabOwn Med) 50 mg PO DAILY@1200 [facility] - Exam General: Alert, Oriented, Cooperative, No Acute Distress Lungs: Clear to Auscultation, Normal Respiratory Effort. No: Crackles, Wheezing Cardiovascular: Regular Rate, Regular Rhythm GI/Abdominal Exam: Normal Bowel Sounds, Soft, Non-Tender, No Distention Extremities: No Pedal Edema, Normal Capillary Refill Peripheral Pulses: 2+: Radial (L), Radial (R) - Patient Data Result Diagrams: 07/28/21 06:10 07/28/21 06:10 Sepsis Event Note - Evaluation Sepsis Screening Result: No Definite Risk - Focused Exam Vital Signs: Vital Signs Temp Temp Pulse Pulse Resp BP BP 07/29/21 16:00 64 18 136/83 07/29/21 12:10 138/81 07/29/21 12:00 98.2 F 58 L 18 138/81 07/29/21 08:50 157/82 H 07/29/21 08:49 58 L 157/82 H 07/29/21 08:00 97.2 F 58 L 16 157/82 H Pulse Ox 07/29/21 16:00 96 07/29/21 12:10 07/29/21 12:00 97 07/29/21 08:50 07/29/21 08:49 07/29/21 08:00 97 - Problem List & Annotations (1) Hypertensive crisis SNOMED Code(s): 916548117 Code(s): I16.9 - HYPERTENSIVE CRISIS, UNSPECIFIED Status: Resolved Current Visit: Yes (2) Chest pain SNOMED Code(s): 00182665 Code(s): R07.9 - CHEST PAIN, UNSPECIFIED Status: Resolved Current Visit: Yes (3) History of CVA (cerebrovascular accident) SNOMED Code(s): 213857840 Code(s): Z86.73 - PRSNL HX OF TIA (TIA), AND CEREB INFRC W/O RESID DEFICITS Status: Acute Current Visit: Yes (4) Hypertension SNOMED Code(s): 90584229 Code(s): I10 - ESSENTIAL (PRIMARY) HYPERTENSION Status: Chronic Current Visit: Yes (5) Dyslipidemia SNOMED Code(s): 121987193 Code(s): E78.5 - HYPERLIPIDEMIA, UNSPECIFIED Status: Chronic Current Visit: Yes (6) GERD (gastroesophageal reflux disease) SNOMED Code(s): 716396153 Code(s): K21.9 - GASTRO-ESOPHAGEAL REFLUX DISEASE WITHOUT ESOPHAGITIS Status: Chronic Current Visit: Yes (7) AAA (abdominal aortic aneurysm) without rupture SNOMED Code(s): 36682095 Code(s): I71.4 - ABDOMINAL AORTIC ANEURYSM, WITHOUT RUPTURE Status: Chronic Current Visit: Yes Onset Date: ~2019 (8) Hx of coronary artery bypass graft SNOMED Code(s): 113537807, 494593200 Code(s): Z95.1 - PRESENCE OF AORTOCORONARY BYPASS GRAFT Status: Chronic Current Visit: Yes Onset Date: ~2000 (9) Left ventricular systolic dysfunction, NYHA class 2 SNOMED Code(s): 596782292, 027720719 Code(s): I51.89 - OTHER ILL-DEFINED HEART DISEASES Status: Chronic Current Visit: Yes Annotation/Comment:: EF 35%, fatigue, chest pressure with ordinary activity. - Problem List Review Problem List Initiated/Reviewed/Updated: Yes - My Orders Last 24 Hours: My Active Orders 07/29/21 08:01 Benzocaine [Orajel] 0 gm MUCMEM QID PRN 07/29/21 12:00 amLODIPine [Norvasc] 10 mg PO DAILY@1200 07/29/21 21:00 Losartan [Cozaar] 100 mg PO DAILY 07/30/21 09:00 Ready for Discharge [RC] PER UNIT ROUTINE Losartan [Cozaar] 50 mg PO DAILY - Plan Plan:: 1. Chest pain, resolved: Troponin 9.1, 11.2, 9.7. Cardiac monitoring having occasional PVCs some bigeminy. Stress test for 08/04. 2. Hypertensive crisis, resolved. Did have spike of BP last night of 170s but has been 130s-150s since midnight. Spoke with Dr Marques, [facility] long term acute care registered nurse, she advised discontinuing Spironolactone given his EF in 05/2020 was 35%, start Amlodipine 10 mg daily at noon and increase his evening Losartan dose to 100 mg at bedtime and keep 50 mg dose for am. She also recommended keeping Lexiscan stress test for 08/04. Also advised taking BP 4x/day and checking BP 2 hours after he takes his medications. 3. AAA: CTA showed stable infrarenal AAA, iliac artery aneurysm, there was some ulceration in AAA but was not penetrating. Dr Marques recommend follow up with Cardiovascular as outpatient but not urgent. 4. Disposition: Medication changes as above, will monitor overnight and if BP stable in 130s will discharge in am.
[2021-07-29] MEDS: Rosuvastatin 20 MG Tab *PTOM PO SCH (20:44)
[2021-07-29] MEDS: OXYBUTYNIN 5 MG PO SCH (20:45)
[2021-07-30] MEDS: Apixaban 5 MG Tab *PTOM PO SCH (09:53)
[2021-07-30] MEDS: Aspirin 81 MG Tab.EC *PTOM PO SCH (09:54)
[2021-07-30] MEDS: ESOMEPRAZOLE 40 MG PO SCH (09:55)
[2021-07-30] MEDS: Carbidopa/Levodopa 25-100 MG Tab *PTOM PO SCH (09:55)
[2021-07-30] MEDS: Carvedilol 6.25 MG Tab *PTOM PO SCH (10:01)
[2021-07-30] MEDS: amLODIPine 10 MG Tab PO SCH (11:45)
[2021-07-30 15:30] VITALS: BP 126/80; PULSE 74
--- NOTE | 2021-07-30 15:55 | PCM.DCSUM1 ---
Discharge Summary - Hospital Course HPI Initial Comments: Randy presented to ER yesterday afternoon, started having chest tightness, heavy arms, facial pressure about 1630 checked his SBP was 180, he took Hydralazine 10 mg x 1 then repeated in 30 min, it had gone up, so took another 10 mg Hydralazine as prescribed and it went up further so he took all his evening meds and came to ER. He has been seen in ER on 07/21 for hypertensive crisis, he was seen on 07/26 by Cardiology, Dr Glass who started him on Spironolactone 25 mg daily as he was on maximum dose of Coreg(HR 60s) & Losartan. He was also seen in ER again evening of 07/26 into 07/27 and followed up in [facility] on later that day of 07/27. He had hydralazine 10 mg 1-2 tabs q6h as needed for SBP > 150. He states his morning medications have been bringing his pressures down to 130s but then it goes up in the afternoons. He has taken 2 dose of Spironolactone so far, evening of 07/26 and afternoon of 07/27. He was scheduled for stress test on 08/04 but cardiology recommended to Dr Sauceda last evening to notify them if his troponin were negative x 3 and when he would be discharged so they can move up his stress test to earlier next week. States he had some blurred vision last night and again this morning. No slurred speech or limb weakness but was u nsteady on his feet per his when she brought him in yesterday. History of CABG x 10 in 2000, stent placed in 2014. 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 History of AAA, last measured 4 cm 2019, has not had this years follow up yet. Denies any fevers, chills, cough, nausea, vomiting, diarrhea. Urinating normally. No diaphoresis. In ER: troponin was 9.1, 11.2, WBC and Chemistry WNL. Covid negative. Received dose of Hydralazine 20 mg IV which brought his pressure down to 139/78. Aspirin 243 mg x [address] head was negative for acute changes. Dr Sauceda spoke with Dr Garcia(see his note), [facility] who recommended admission for serial cardiac enzymes and monitoring and to notify Cardiology clinic to get his stress test moved up if his troponin remained negative. Diagnosis: Stroke: No - Discharge Data Discharge Date: 07/30/21 Discharge Disposition: Home, Self-Care 01 Condition: Good - Referral to Home Health Primary Care Physician: Thomas Lawrence MD - Discharge Diagnosis/Problem(s) (1) Hypertensive crisis SNOMED Code(s): 826233603 ICD Code: I16.9 - HYPERTENSIVE CRISIS, UNSPECIFIED Status: Resolved Current Visit: Yes (2) Chest pain SNOMED Code(s): 43511918 ICD Code: R07.9 - CHEST PAIN, UNSPECIFIED Status: Resolved Current Visit: Yes (3) History of CVA (cerebrovascular accident) SNOMED Code(s): 054970101 ICD Code: Z86.73 - PRSNL HX OF TIA (TIA), AND CEREB INFRC W/O RESID DEFICITS Status: Chronic Current Visit: Yes (4) Hypertension SNOMED Code(s): 70431157 ICD Code: I10 - ESSENTIAL (PRIMARY) HYPERTENSION Status: Chronic Current Visit: Yes (5) Dyslipidemia SNOMED Code(s): 955399247 ICD Code: E78.5 - HYPERLIPIDEMIA, UNSPECIFIED Status: Chronic Current Visit: Yes (6) GERD (gastroesophageal reflux disease) SNOMED Code(s): 186311862 ICD Code: K21.9 - GASTRO-ESOPHAGEAL REFLUX DISEASE WITHOUT ESOPHAGITIS Status: Chronic Current Visit: Yes (7) AAA (abdominal aortic aneurysm) without rupture SNOMED Code(s): 07943948 ICD Code: I71.4 - ABDOMINAL AORTIC ANEURYSM, WITHOUT RUPTURE Status: Chronic Current Visit: Yes Onset Date: ~2019 (8) Hx of coronary artery bypass graft SNOMED Code(s): 761220185, 222502503 ICD Code: Z95.1 - PRESENCE OF AORTOCORONARY BYPASS GRAFT Status: Chronic Current Visit: Yes Onset Date: ~2000 (9) Left ventricular systolic dysfunction, NYHA class 2 SNOMED Code(s): 976950616, 456925790 ICD Code: I51.89 - OTHER ILL-DEFINED HEART DISEASES Status: Chronic Current Visit: Yes Problem Details: EF 35%, fatigue, chest pressure with ordinary activity. - Patient Summary/Data Hospital Course: Initial blood pressure was 207/92 then was fluctuating between 160-170s night and all day Saturday. Received Hydralazine 20 mg IV on night of admission but then was back up on Saturday am. He had just been started on Spironolactone so that was moved up to noon for dosing. Used 2 doses of Hydralazine 20 mg po on Saturday lowest SBP was 140s. Troponin 3 sets: 9.1, 11.2, 9.7 respectively. CBC & WBC were all within normal limits. Covid negative. CTA abdomen/pelvis showed stable infrarenal AAA, iliac artery aneurysm. Spoke with Dr Marques, [facility] on 07/29, recommended discontinuing Spironolactone, started Amlodipine at 10 mg daily at noon and increase evening dose of Losartan to 100 mg and keep 50 mg for morning. Keep his Lexiscan stress test for 08/04. Last echo in 05/2020 showed EF of 35%. Received Amlodipine blood pressures stayed in 130s-140s, bumped to 159 at 2305 on 07/29 and then was 102/74 at 730 this morning. Prior to his am meds he was 122/81, he received his Coreg and held Los tiffanie. Recheck at 1145 was 140/100 and 166/90 after Amlodipine was given, 3 hours recheck was 126/80. Will go back to his home dose of Losartan tonight 50 mg bid and keep Amlodipine at 10 mg daily at noon. He will still have Hydralazine 20 mg q6h as needed high blood pressure and if he is trending low he can adjust his Losartan as he did a few months ago. If he gets down to Losartan 25 mg daily and he's still low then can titrate Amlodipine back. Follow up with Dr Lawrence in 1 week for recheck of BPs, renal ultrasound to check renal stenosis as possible secondary cause of hypertension and referral to CV in regards to his AAA. Keep Lexiscan stress test for 08/04. Had discussed increased stress and anxiety, both him and his felt he was doing well in regards to this but prior to discharge he stated that he does check his blood pressures 5-6 times a day because he's worried and asked if he could have something for anxiety. Rx for Hydroxyzine 25 mg q8h as needed anxiety sent to his pharmacy to [facility] tomorrow, follow up with Dr Lawrence if this is helping. - Patient Instructions Diet: Usual Diet as Tolerated Activity: As Tolerated Driving: Do Not Drive Showering/Bathing: May Shower Notify Provider of: Increased Pain (headache, slurred speech, chest pain, blood pressure elevated.) Other/Special Instructions: Follow up with Dr Lawrence in 1 week to recheck your blood pressure, refer to Cardiovascular surgery to follow up Aortic aneursym and also order renal ultrasound. Keep Lexiscan stress test for 08/04. - Discharge Plan *PRESCRIPTION DRUG MONITORING PROGRAM REVIEWED*: Not Applicable *COPY OF PRESCRIPTION DRUG MONITORING REPORT IN PATIENT MIKE: Not Applicable Prescriptions/Med Rec: amLODIPine Besylate [Amlodipine Besylate] 10 mg PO DAILY@1200 #30 tablet Losartan [Cozaar] 50 mg PO BID #60 tablet Home Medications: Home Meds Esomeprazole [NexIUM] 40 mg PO DAILY 03/05/17 [History] Nitroglycerin [Nitrostat] 0.4 mg SL ASDIRECTED PRN 03/05/17 [History] Oxybutynin [Oxybutynin ER] 5 mg PO BEDTIME 07/22/21 [History] Rosuvastatin [Crestor] 20 mg PO BEDTIME 07/22/21 [History] carvediloL [Coreg] 6.25 mg PO BID 07/22/21 [History] Apixaban [Eliquis] 5 mg BID 07/27/21 [History] metroNIDAZOLE [metroNIDAZOLE 0.75% Gel] 1 applic BID PRN 07/27/21 [History] Aspirin [Adult Low Dose Aspirin EC] 81 mg PO DAILY 07/28/21 [History] Benzocaine [Orajel] 0 gm MUCMEM QID PRN tube 07/29/21 [Rx] Carbidopa/Levodopa [Carbidopa-Levodopa 25-100] 1 tab PO DAILY tablet 07/29/21 [Rx] amLODIPine Besylate [Amlodipine Besylate] 10 mg PO DAILY@1200 #30 tablet 07/29/21 [Rx] hydrALAZINE [Apresoline] 20 mg PO Q6H PRN tablet 07/29/21 [Rx] Losartan [Cozaar] 50 mg PO BID #60 tablet 07/30/21 [Rx] hydrOXYzine HCL [Atarax] 25 mg PO Q8H PRN #12 tab 07/30/21 [Rx] Oxygen Therapy Mode: Room Air Patient Handouts: Fall Prevention in Hospitals, Adult, Deep Vein Thrombosis, H ypertension, Adult Forms: ED Department Discharge Referrals: hTomas Lawrence MD [Primary Care Provider] - - Discharge Summary/Plan Comment DC Time >30 min.: No Total # of Minutes for Discharge Time: 20 min - General Info Date of Service: 07/30/21 Subjective Update: He is feeling better today, little dizzy this morning. His blood pressures did well overnight but 730 am it dropped to 102/74. States he has headache but different from when his blood pressure is high. No chest pain or arm pain. Feels much better than when he came in. - Patient Data Vitals - Most Recent: Last Vital Signs Temp 98.2 F 07/30/21 07:30 Pulse 74 07/30/21 15:29 Resp 18 07/30/21 15:29 BP 126/80 07/30/21 15:29 Pulse Ox 96 07/30/21 15:29 Weight - Most Recent: 186 lb 14.4 oz Med Orders - Current: Current Medications Amlodipine Besylate (Amlodipine 10 Mg Tab) 10 mg PO DAILY@1200 [facility] Last Admin: 07/30/21 11:45 Dose: 10 mg Documented by: Apixaban (Apixaban 5 Mg Tab *Ptom*) 5 mg PO BID [facility] Last Admin: 07/30/21 09:53 Dose: 5 mg Documented by: Aspirin (Aspirin 81 Mg Tab.Ec *Ptom*) 81 mg PO DAILY [facility] Last Admin: 07/30/21 09:54 Dose: 81 mg Documented by: Benzocaine (Benzocaine Dental Gel 5 Gm Tube) 0 gm MUCMEM QID PRN PRN Reason: mouth pain Carbidopa/Levodopa (Carbidopa/Levodopa 25-100 Mg Tab *Ptom*) 1 tab PO DAILY [facility] Last Admin: 07/30/21 09:55 Dose: 1 tab Documented by: Carvedilol (Carvedilol 6.25 Mg Tab *Ptom*) 6.25 mg PO BID [facility] Last Admin: 07/30/21 10:01 Dose: 6.25 mg Documented by: Hydralazine HCl (Hydralazine 10 Mg Tab *Ptom*) 20 mg PO Q6H PRN PRN Reason: Hypertension Last Admin: 07/28/21 22:04 Dose: 20 mg Documented by: Losartan Potassium (Losartan 50 Mg TabOwn Med) 50 mg PO BID [facility] Last Admin: 07/30/21 09:00 Dose: Not Given Documented by: Nitroglycerin (Nitroglycerin 0.4 Mg Tab.Sl *Ptom*) 0.4 mg SL ASDIRECTED PRN PRN Reason: Chest Pain Esomeprazole 40mg (Cap *Ptom*) 1 each PO DAILY [facility] Last Admin: 07/30/21 09:55 Dose: 1 each Documented by: Oxybutynin Chloride (Oxybutynin 5 Mg Tab.Er *Ptom*) 5 mg PO BEDTIME [facility] Last Admin: 07/29/21 20:45 Dose: 5 mg Documented by: Rosuvastatin Calcium (Rosuvastatin 20 Mg Tab *Ptom*) 20 mg PO BEDTIME [facility] Last Admin: 07/29/21 20:44 Dose: 20 mg Documented by: Sodium Chloride (Sodium Chloride 0.9% 10 Ml Syringe) 10 ml FLUSH ASDIRECTED PRN PRN Reason: Keep Vein Open Discontinued Medications Aspirin (Aspirin 81 Mg Tab.Chew) 324 mg PO NOW STA Stop: 07/27/21 18:10 Last Admin: 07/27/21 18:44 Dose: Not Given Documented by: Aspirin (Aspirin 81 Mg Tab.Chew) 243 mg PO NOW STA Stop: 07/27/21 18:40 Last Admin: 07/27/21 18:44 Dose: 243 mg Documented by: Aspirin (Aspirin 81 Mg Tab.Chew) 81 mg PO DAILY [facility] Carbidopa/Levodopa (Carbidopa/Levodopa 25-100 Mg Tab *Ptom*) 1 tab PO TID PRN PRN Reason: other Hydralazine HCl (Hydralazine 20 Mg/Ml Sdv) 20 mg IVPUSH NOW STA Stop: 07/27/21 18:10 Last Admin: 07/27/21 18:42 Dose: 20 mg Documented by: Iopamidol (Iopamidol 755 Mg/Ml 100 Ml Bottle) 85 ml IV . DIRECTED ONE Stop: 07/28/21 12:10 Last Admin: 07/28/21 12:55 Dose: 85 ml Documented by: Losartan Potassium (Losartan 50 Mg Tab *Ptom*) 50 mg PO BID [facility] Last Admin: 07/29/21 20:42 Dose: 50 mg Documented by: Losartan Potassium (Losartan 50 Mg TabOwn Med) 100 mg PO DAILY [facility] Last Admin: 07/29/21 20:43 Dose: 100 mg Documented by: Losartan Potassium (Losartan 50 Mg TabOwn Med) 50 mg PO DAILY [facility] Oxybutynin Chloride (Oxybutynin 5 Mg Tab.Er) 5 mg PO DAILY [facility] Pantoprazole Sodium (Pantoprazole 40 Mg Tab.Cr) 40 mg PO ACBREAKFAST [facility] Last Admin: 07/28/21 11:16 Dose: Not Given Documented by: Rosuvastatin Calcium (Rosuvastatin 20 Mg Tab) 20 mg PO DAILY [facility] Last Admin: 07/28/21 11:16 Dose: Not Given Documented by: Spironolactone (Spironolactone 25 Mg Tab *Ptom*) 25 mg PO DAILY [facility] Last Admin: 07/28/21 11:16 Dose: Not Given Documented by: Spironolactone (Spironolactone 25 Mg Tab *Ptom*) 25 mg PO 1200 [facility] Last Admin: 07/28/21 12:03 Dose: 25 mg Documented by: Spironolactone (Spironolactone 25 Mg TabOwn Med) 50 mg PO DAILY@1200 [facility] - Exam General: Reports: Alert, Oriented, Cooperative, No Acute Distress Lungs: Reports: Clear to Auscultation, Normal Respiratory Effort Cardiovascular: Reports: Regular Rate, Regular Rhythm GI/Abdominal Exam: Normal Bowel Sounds, Soft, Non-Tender, No Distention Extremities: No Pedal Edema
--- NOTE | 2021-07-31 12:37 | PCM.EKG ---
#1 Interpretation EKG Date: 07/27/21 Time: 17:52 Rhythm: NSR Rate (Beats/Min): 57 [place]: Normal P-Wave: Present QRS: Normal ST-T: Normal QT: Normal AK/PQ Interval: 216 Comparison: No Change EKG Interpretation Comments: NSR LVH LAE #2 Interpretation EKG Date: 07/27/21 Time: 18:39 Rhythm: NSR Rate (Beats/Min): 62 [place]: Normal P-Wave: Present QRS: Normal ST-T: Normal QT: Normal AK/PQ Interval: 218 Comparison: No Change EKG Interpretation Comments: NSR Prolonged AK LVH
== END 2021-07-30 16:25 | disposition home or self-care (01) ==
LOC: FB.ED 17:49 → FB.MS 19:43
PROVIDERS: ADMIT Emergency Medicine; ATTEND Family Medicine
DX: I16.9 Hypertensive crisis, unspecified (principal); R07.89 Other chest pain; I11.0 Hypertensive heart disease with heart failure; I25.10 Atherosclerotic heart disease of native coronary artery without angina pectoris; E78.00 Pure hypercholesterolemia, unspecified; I25.2 Old myocardial infarction; K21.9 Gastro-esophageal reflux disease without esophagitis; F41.9 Anxiety disorder, unspecified; F17.210 Nicotine dependence, cigarettes, uncomplicated; Z86.73 Personal history of transient ischemic attack (TIA), and cerebral infarction without residual deficits; Z20.822 Contact with and (suspected) exposure to COVID-19; Z88.8 Allergy status to other drugs, medicaments and biological substances; Z79.899 Other long term (current) drug therapy; Z79.82 Long term (current) use of aspirin; Z98.890 Other specified postprocedural states
CPT/HCPCS: 36415; 70450; 74174; 80053; 83880; 84484; 85025; 85379; 85610; 85730; 93005; 96374; 99285; A9270; G0378; J0360; Q9967; U0002